=== PATIENT | male | born 1945 | race Caucasian/White ===

== ENCOUNTER → 2016-02-28 | Outpatient (CLI) | payer MEDICARE, BC ==
[2016-02-28 11:21] LABS: Blood Urea Nitrogen 17 mg/dL (9-20); Non-African American GFR(MDRD) >60 (>60 ml/min/1.73 sqM)
--- NOTE | 2016-02-28 13:49 | CT ---
EXAMINATION TYPE: CT ChestAbdPelvis w con DATE OF EXAM: 02/28/2016 12:37 PM COMPARISON: 11/20/2015 and 11/24/2014. HISTORY: 71-year-old male has no complaints at time of service. Follow up study for known esophageal CA. TECHNIQUE: Contiguous axial scanning of the chest, abdomen, and pelvis performed with IV Contrast, pa tient injected with 100 mL of Omnipaque 300. Delayed images through the kidneys were obtained. Russ l/sagittal reconstructions performed. CT DLP: 677.1 mGycm Automated exposure control for dose reduction was used. FINDINGS: CHEST: Heart is normal size without pericardial effusion. Aorta is normal caliber with a conventional chest branching anatomy. Scattered subcentimeter mediastinal lymph nodes are redemonstrated. One along the superior right para tracheal region axial image 14 now measures 8 mm versus 7 mm, previously. Small 5 mm lymph node to th e left of the thyroid gland is unchanged. A small 8 mm lymph node to the right of the thyroid gland i s 1 mm larger. A lymph node in the anterior mediastinum near the origin of the SVC measures 9 mm vers us 6 mm, previously. Numerous prominent but nonenlarged lymph nodes around the daniel measuring up to 9 mm are unchanged. Mild bilateral gynecomastia. There are postsurgical changes of esophagectomy and gastric pull-through. Band of atelectasis posterior right upper mid lung. Tiny scattered nodular densities measuring up to 3 mm in the left lung, images axial 28 and 29 and some subtle increased tree-in-bud opacities in the mid to lower lungs are noted. 8 mm pulmonary nodule inferior lingula image 39 is unchanged. No consolidation or pleural effusion. ABDOMEN: No focal liver lesion. No biliary ductal dilatation. Some dense layering sludge oral contrast within the gallbladder fundus. No abnormal gallbladder distention. Adrenal glands, right kidney with a 1.7 cm upper pole cyst, left kidney with a stable 2.8 cm lower po le cyst are unchanged. Smaller subcentimeter hypodensities in the left kidney are too small for accur ate CT characterization also likely cysts and are unchanged. There is a icbnp-ej-acvphedu size fatty umbilical hernia. There is heterogeneous enhancement of the superior half of the liver with adjacent inflammatory fat s tranding in the region of the splenic hilum. Hilar splenules are noted inferiorly and there is some h ypodensity also involving the pancreatic tail region, axial image 71 There is further progression splenomegaly now measuring 20.6 cm versus 16.5 cm, previously. This is m easured on sagittal series. No dilated small bowel or free air. Short stump of appendix is noted with moderate stool in the right hemicolon and mild left hemicolonic diverticulosis. No pericolonic inflammatory change. A mildly enlarged 1.3 cm retrocaval lymph node axial image 77 measures 1.2 cm, previously and is very small on 11/24/2014. Pelvis: Some chronic appearing fluid along the left-sided deep inguinal ring. Bladder is nondistended and erica w circumferential wall thickening. Status post prostatectomy with multiple surgical clips on both karan es of the lower pelvis. Additional surgical clips along the right iliac chain from prior dissection. Bones: No osseous destructive process. IMPRESSION: 1. A FEW LYMPH NODES HAVE MINIMALLY INCREASED IN SIZE BY 1 - 3 MM INCLUDING THE PREVIOUSLY DESCRIBED SUBCENTIMETER LYMPH NODES IN THE MEDIASTINUM (TO THE RIGHT OF THE THYROID GLAND, SUPERIOR RIGHT PARAT SALLY, ANTERIOR MEDIASTINUM NEAR THE ORIGIN OF THE SVC) AND A RETROCAVAL LYMPH NODE IN THE UPPER AB DOMEN WHICH CURRENTLY MEASURES 1.3 CM. CONTINUED CLOSE FOLLOW-UP IS RECOMMENDED. 2. PROGRESSIVE SPLENOMEGALY NOW AT 20.6 CM (VERSUS 16.5 CM, PREVIOUSLY). 3. THERE IS NEW HETEROGENEITY OF THE SUPERIOR HALF OF THE SPLEEN AND ADJACENT INFLAMMATORY FAT STRAND ING. FINDINGS COULD BE REACTIVE TO VASCULAR INSUFFICIENCY AND DEVELOPING SPLENIC INFARCT OR REACTIVE TO ACUTE PANCREATITIS OF THE PANCREATIC TAIL. CLINICALLY CORRELATE. 4. AN 8 MM LINGULAR PULMONARY NODULE IS UNCHANGED. 5. STATUS POST ESOPHAGECTOMY AND GASTRIC PULL-THROUGH. THERE ARE SOME INCREASED TREE-IN-BUD OPACITIES IN THE MID TO LOWER LUNGS THAT COULD REPRESENT MILD ASPIRATION OR BRONCHIOLITIS.
== END | disposition home or self-care (01) ==
LOC: RADCTMAIN 10:35
PROVIDERS: ATTEND Internal Medicine Hematology & Oncology
DX: C15.9 Malignant neoplasm of esophagus, unspecified (principal); R91.1 Solitary pulmonary nodule; R59.1 Generalized enlarged lymph nodes; R16.1 Splenomegaly, not elsewhere classified; Z90.49 Acquired absence of other specified parts of digestive tract
CPT/HCPCS: 82565; 84520; 71260; 74177; 36415; Q9967

== ENCOUNTER → 2016-07-04 | Outpatient (CLI) | payer MEDICARE, BC ==
[2016-07-04 07:26] LABS: Blood Urea Nitrogen 16 mg/dL (9-20); Non-African American GFR(MDRD) >60 (>60 ml/min/1.73 sqM)
--- NOTE | 2016-07-04 09:15 | CT ---
EXAMINATION TYPE: CT ChestAbdPelvis w con DATE OF EXAM: 07/04/2016 8:45 AM COMPARISON: Previous study dated 02/28/2016. HISTORY: Esophageal CA CT DLP: 1061.9 mGycm Automated exposure control for dose reduction was used. TECHNIQUE: Helical acquisition through the abdomen and pelvis was obtained without oral contrast but following the intravenous administration of 100 mL of Omnipaque 300. The data was formatted in the a xial, coronal and sagittal projections. FINDINGS: There has been an esophagectomy with gastric pull-through. There is a stable 9 mm nodule in the left lingula. Additional tiny nodules within the left lung are a gain identified measuring up to 4 mm. These are essentially unchanged from previous. There is atelect atic change at the lung bases. There is some calcification of the major fissure on the right. There is stable, subcentimeter adenopathy within the neck. The lesion measured previously at 7.9 mm t didi measures 7.5 mm. A right paratracheal lymph node measured previously at 7.9 mm today measures 8. 4 mm. Pretracheal lymph node on the left previously was measured at 9.3 mm. Today it measures 10.2 mm . There is no pleural or pericardial fluid. The heart is not enlarged. Within the abdomen, there is fatty infiltration of the liver. There is sludge in the gallbladder. The spleen is enlarged measuring 20 cm. The upper pole of the spleen remains heterogenous and unchanged from previous. Both adrenal glands appear normal. There is a stable 2.9 cm cyst in the lower pole of the left kidney. There are parapelvic cysts presen t bilaterally. There is a simple appearing 1.7 cm cyst in the upper pole of the right kidney. There a re several other smaller subcentimeter cysts bilaterally. The body and the tail of the pancreas are abnormal. There is an enlarging 2.3 cm cystic lesion involv ing the body of the pancreas. Definite inflammatory changes not seen. A retrocaval lymph node previously measured at 1.3 cm today measures 1.1 cm. No other definite retrop eritoneal, iliac or inguinal adenopathy is seen. The bladder is unremarkable. The prostate gland is been removed. There are scattered diverticula along the left side of the colon without radiographic evidence of div erticulitis. The appendix is not visualized with certainty. Small bowel loops appear normal. There is a periumbilical hernia containing fat only with a mouth measuring 1.1 cm. There is no free fluid and no free air. There is facet arthropathy, degenerative disc disease and hypertrophic spondylosis throughout the spi ne. No bony destructive lesion is seen. IMPRESSION: 1. STATUS POST ESOPHAGECTOMY AND GASTRIC PULL-THROUGH. 2. MULTIPLE, STABLE PULMONARY NODULES. 3. STABLE SPLENOMEGALY WITH HETEROGENOUS ENHANCEMENT OF THE UPPER POLE OF THE SPLEEN. 4. SLUDGE WITHIN THE GALLBLADDER. 5. STABLE RENAL CYSTS. 6. ABNORMAL APPEARING PANCREAS MAY BE THE SEQUELA OF PANCREATITIS. NO ACTIVE INFLAMMATION IS SEEN AT THIS TIME. 7. STABLE ADENOPATHY IN THE MEDIASTINUM AND RETROCAVAL REGIONS. 8. MINIMAL, UNCOMPLICATED DIVERTICULOSIS OF THE COLON. 9.. UMBILICAL HERNIA CONTAINING FAT ONLY WITH A MOUTH MEASURING 1.1 CM. 10. DEGENERATIVE CHANGES WITHIN THE SPINE.
== END | disposition home or self-care (01) ==
LOC: RADCTMAIN 06:57
PROVIDERS: ATTEND Internal Medicine Hematology & Oncology
DX: K57.30 Diverticulosis of large intestine without perforation or abscess without bleeding (principal); R91.8 Other nonspecific abnormal finding of lung field; R16.1 Splenomegaly, not elsewhere classified; K82.8 Other specified diseases of gallbladder; N28.1 Cyst of kidney, acquired; R59.9 Enlarged lymph nodes, unspecified; K42.9 Umbilical hernia without obstruction or gangrene; R93.5 Abnormal findings on diagnostic imaging of other abdominal regions, including retroperitoneum; C15.9 Malignant neoplasm of esophagus, unspecified; M47.9 Spondylosis, unspecified; Z90.49 Acquired absence of other specified parts of digestive tract
CPT/HCPCS: 82565; 84520; 71260; 74177; 36415; Q9967

== ENCOUNTER 2016-07-29 11:12 | Day surgery (SDC) | payer MEDICARE, BC ==
[2016-07-25 11:44] VITALS: BMI 23.2
[~2016-07-29 11:12] MED LIST: LACTATED RINGERS 1,000 ML IV SCH
[2016-07-29] MEDS ORDERED: LIDOCAINE 1% 20 ML VIAL (10MG/ML) FOR IV START INTRADERMA ONE (11:35)
[2016-07-29 11:44] VITALS: RESP 18; TEMP 96.9
[2016-07-29] MEDS ORDERED: PROPOFOL 10 MG/ML 20 ML VIAL IV ONE (11:44)
[2016-07-29] MEDS ORDERED: LIDOCAINE 1% INJ 10MG/ML (20 ML MDV) ONE (11:44)
--- NOTE | 2016-07-29 12:17 | P.PCN ---
Date of Procedure: 07/29/16 Preoperative Diagnosis: Postoperative Diagnosis: Procedure(s) Performed: Procedure: Esophagogastro duodenoscopy. Preoperative diagnosis: Anemia patient has history of adenocarcinoma of the esophagus. Postoperative diagnosis: 1. Prior distal esophageal resection with gastric pull- through. 2. Retained partially digested food in the stomach with no evidence of obstruction to the gastric outlet. 3. No evidence of recurrent cancer at the anastomotic site. 4. Mild gastritis, other pathology could have been overlooked because of the stomach contents. Preparation and sedation: Was provided by anesthesia. Brief clinical history: The patient is a 71-year-old male who was diagnosed with cancer of the esophagus back in July 2014 and underwent distal esophageal resection following radiation and chemotherapy. The patient is referred at this time because of anemia. There is no overt bleeding. His last colonoscopy was in March 2007 and that showed sigmoid diverticulosis. Procedure: With the patient on his left lateral decubitus position and after informed consent and adequate sedation, I passed the Olympus-GIF 160 video upper endoscope through the cricopharyngeus down the esophagus. The patient had evidence of prior distal resection and gastric pull-through. The anastomosis was at around 29 cm from the incisors. There was significant amount of partially digested food filling the stomach and regurgitating in the esophagus. There was no evidence of recurrent cancer at the anastomotic site or any evidence of esophagitis. The stomach had a background of some gastritis with minimal erythema and friability. Other pathology could have been obscured by the retained food. I was able to identify the pylorus and pass the endoscope through it into the duodenum. There was no mechanical obstruction to the gastric outlet the intestine looked normal. No evidence of bleeding. The patient tolerated the procedure well. Plan: The patient was reassured. Consideration can be given for repeat upper endoscopy after longer preparation. This could be done in the context of performing a colonoscopy part of the workup of his anemia. He will follow up with you as planned and I will keep you updated on his progress. Implants: Indications for Procedure: Operative Findings: Description of Procedure:
[2016-07-29 12:49] VITALS: BP 127/76; PULSE 80
== END 2016-07-29 12:57 | disposition home or self-care (01) ==
LOC: ORWHC2ENDO 11:12
DX: D64.9 Anemia, unspecified (principal); K21.9 Gastro-esophageal reflux disease without esophagitis; K29.70 Gastritis, unspecified, without bleeding; Z79.899 Other long term (current) drug therapy; Z85.01 Personal history of malignant neoplasm of esophagus; Z85.46 Personal history of malignant neoplasm of prostate
CPT/HCPCS: 43235; J2001; J2704

== ENCOUNTER 2016-09-30 09:31 | Day surgery (SDC) | payer MEDICARE, BC ==
[2016-09-26 09:59] VITALS: BMI 23.1
[2016-09-30 10:47] VITALS: TEMP 97
[2016-09-30] MEDS ORDERED: LACTATED RINGERS 1,000 ML IV ONE ×2 (10:47→12:43)
[2016-09-30] MEDS ORDERED: LIDOCAINE 1% 20 ML VIAL (10MG/ML) FOR IV START INTRADERMA ONE (10:54)
[2016-09-30] MEDS ORDERED: GLYCOPYRROLATE 0.2 MG/ML 2 ML VIAL ONE (12:17)
[2016-09-30] MEDS ORDERED: PROPOFOL 10 MG/ML 20 ML VIAL IV ONE (12:17)
[2016-09-30] MEDS ORDERED: KETAMINE 10 MG/ML 20 ML VIAL ONE (12:17)
[2016-09-30] MEDS ORDERED: LIDOCAINE 1% INJ 10MG/ML (20 ML MDV) ONE (12:17)
--- NOTE | 2016-09-30 13:00 | P.PCN ---
Date of Procedure: 09/30/16 Preoperative Diagnosis: Postoperative Diagnosis: Procedure(s) Performed: Procedure: Esophagogastroduodenoscopy and biopsy. Total colonoscopy.. Preoperative diagnosis: Anemia patient has history of adenocarcinoma of the esophagus. Postoperative diagnosis: 1. Prior distal esophageal resection with gastric pull- through. 2. Gastritis. 3. No evidence of recurrent cancer at the anastomotic site. 4. Sigmoid diverticulosis with no evidence of acute diverticulitis, strictures, polyps or cancer. Preparation: HalfLytely prep. Sedation: Was provided by anesthesia. Brief clinical history: The patient is a 71-year-old male who was diagnosed with cancer of the esophagus back in July 2014 and underwent distal esophageal resection following radiation and chemotherapy. The patient was referred last July because of anemia. An upper endoscopy revealed mild gastritis but there was large amount of retained secretions and partially digested food filling the stomach that could have obscured other pathology. His prior colonoscopy was in March 2007 and that showed sigmoid diverticulosis. The patient is referred at this time for repeat upper endoscopy and colonoscopy. Procedure: With the patient on his left lateral decubitus position and after informed consent and adequate sedation, I passed the Olympus-GIF 160 video upper endoscope through the cricopharyngeus down the esophagus. The patient had evidence of prior distal resection and gastric pull-through. The anastomosis was at around 29 cm from the incisors. The stomach was inspected carefully and there was no evidence of retained food or mechanical obstruction to the gastric outlet. The mucosa showed mottling, erythema and friability. Pyloric channel, duodenal bulb, post bulbar area and descending duodenum appeared within normal limits. I obtained biopsies from the duodenum as well as from the antrum and proximal stomach then the endoscope was withdrawn. There was no evidence of recurrent cancer at the anastomotic site or any evidence of esophagitis. There was no mechanical obstruction to the gastric or any evidence of bleeding. The patient tolerated the procedure well and I then proceeded with the colonoscopy. Perianal area did not show any fissures or fistulas. There were no masses felt on digital rectal examination. The Olympus CFQ 160L video colonoscope was then inserted in the rectum in the usual fashion and advanced to the cecum. There were several diverticular orifices seen scattered in the sigmoid with no evidence of acute diverticulitis or strictures. No polyps, tumors, angiodysplasias or other pathology noted or any evidence of bleeding. I retroflexed the endoscope in the rectum before the endoscope was withdrawn. The patient tolerated the procedure well. Plan: The patient was reassured. Will await pathology results and make further recommendations. He will follow up with you as planned. Implants: Indications for Procedure: Operative Findings: Description of Procedure:
[2016-09-30 13:13] VITALS: BP 130/86; PULSE 97; RESP 16
== END 2016-09-30 13:30 | disposition home or self-care (01) ==
LOC: ORWHC2ENDO 09:31
DX: K29.50 Unspecified chronic gastritis without bleeding (principal); D64.9 Anemia, unspecified; I10 Essential (primary) hypertension; K57.30 Diverticulosis of large intestine without perforation or abscess without bleeding; Z92.3 Personal history of irradiation; Z92.21 Personal history of antineoplastic chemotherapy; Z85.01 Personal history of malignant neoplasm of esophagus; Z85.46 Personal history of malignant neoplasm of prostate
CPT/HCPCS: 88305; 88342; 45378; 43239; J2001; J2704

== ENCOUNTER → 2016-11-03 | Outpatient (CLI) | payer MEDICARE, BC ==
[2016-11-03 10:12] LABS: Blood Urea Nitrogen 16 mg/dL (9-20); Non-African American GFR(MDRD) >60 (>60 ml/min/1.73 sqM)
--- NOTE | 2016-11-03 12:42 | CT ---
EXAMINATION TYPE: CT ChestAbdPelvis w con DATE OF EXAM: 11/03/2016 COMPARISON: Prior CT chest abdomen pelvis 07/04/2016 HISTORY: Esophageal cancer, observation for metastasis CT DLP: 1951 mGycm Automated exposure control for dose reduction was used. CONTRAST: CT scan of the chest, abdomen and pelvis is performed with Oral Contrast and with IV Contrast, patien t injected with 100 mL of Omnipaque 300. FINDINGS: LUNGS: Nodularity within the lungs is stable. MEDIASTINUM: There are coronary artery calcifications. No pleural or pericardial effusion. AORTA: No significant abnormality is seen. OTHER: Postop changes show a stable appearance. Small umbilical hernia contains fat. LIVER/GB: Liver shows low attenuation as on previous exam, focal sparing present adjacent to the gall bladder, gallbladder show some dependent high density suggestive of small stones or tumefactive sludg e as on previous PANCREAS: Similar findings, abnormal low attenuation again present within the pancreas. Some surround ing abnormal soft tissue extends to the level of the region around the splenic artery and towards the level of the hiatus, stable. SPLEEN: Again markedly enlarged with heterogeneous appearance. Splenic vein show some collateralizati on anteriorly. ADRENALS: No significant abnormality is seen. KIDNEYS: Multiple cysts present bilaterally as on prior exam REPRODUCTIVE ORGANS: Patient is likely post prostatectomy. Surgical clips are present in the pelvis. BOWEL: No evident bowel obstruction. FREE AIR: No Free Air visible. ASCITES: None seen. RETROPERITONEAL ADENOPATHY: No retroperitoneal adenopathy is seen. LYMPH NODES: No greater than 1 cm abdominal or pelvic lymph nodes are appreciated. URINARY BLADDER: Mild lateral wall thickening may be due to sequela of chronic bladder outlet obstru ction but is stable, correlate to exclude cystitis. PELVIC ADENOPATHY: None visualized. OSSEOUS STRUCTURES: Stable IMPRESSION: Postop changes. No significant interval change is evident. Splenomegaly. Hepatic steatosi s, cholelithiasis versus tumefactive sludge. Indeterminate pancreatic abnormality shows a stable appe arance. Additional findings above.
== END | disposition home or self-care (01) ==
LOC: RADCTMAIN 09:34
PROVIDERS: ATTEND Internal Medicine Hematology & Oncology
DX: C15.9 Malignant neoplasm of esophagus, unspecified (principal); R16.1 Splenomegaly, not elsewhere classified; Z98.890 Other specified postprocedural states
CPT/HCPCS: 82565; 84520; 71260; 74177; 36415; Q9967

== ENCOUNTER → 2017-05-06 | Outpatient (CLI) | payer MEDICARE ==
[2017-05-06 10:30] LABS: Blood Urea Nitrogen 15 mg/dL (9-20)
--- NOTE | 2017-05-06 15:25 | CT ---
EXAMINATION TYPE: CT ChestAbdPelvis w con DATE OF EXAM: 05/06/2017 INDICATION: Esophageal CA follow up COMPARISON: 11/03/2016 small lymph nodes between the left subclavian and left carotid artery. Some add itional small lymph nodes are in the pretracheal space. Enlarged lymphadenopathy is not identified ot herwise. Gastric pull-through is evident on the right of midline. CT DLP: 1052 mGycm CONTRAST: Performed with Oral Contrast and with IV Contrast, patient injected with 100 mL of Omnipaque 300. TECHNIQUE: Axial images at 5 mm thick sections. Reconstructed images in the coronal plane. Delayed images through the kidneys. FINDINGS: CT CHEST: Portion of the thyroid visualized is normal. No suspicious lung nodules or focal infiltrates are present. There is a small left pleural effusion w hich is new. There is a superior mediastinal lymph node with a transverse dimension 1.4 cm. Series 3 image 15. Thi s has enlarged from the comparison. The ascending aorta diameter at the level of the main pulmonary artery is 3.3 cm. The main pulmonary artery diameter at the bifurcation is 2.[address] ABDOMEN: Liver: Moderate fatty infiltration is present. No discrete mass is evident. Spleen: Splenomegaly is present. Spleen measures 21.6 cm in craniocaudal dimension. Normal less than 12.5 Pancreas: Pancreas is unchanged from prior study. Adrenal glands: The adrenal glands are normal. Gallbladder: Gallstones may be at the fundus of the gallbladder. This could be related to contrast ex cretion as well. Kidneys: No masses are evident. No hydronephrosis is present. There is a 2.7 cm cyst measuring 16 [place] units at the inferior pole left kidney. Delayed images were obtained through the kidneys, which remain unremarkable. Aorta: Vascular calcification is within the aorta. Inferior vena cava: Normal. CT PELVIS: Loops of bowel within the abdomen and pelvis are normal. There are loops of bowel which are incom pletely distended or lack oral contrast limiting their evaluation. Appendix: Normal as visualized. Urinary bladder: Normal. Genitourinary structures: There appears to be a prior prostatectomy. Osseous structures: No suspicious lytic or sclerotic lesions. IMPRESSIONS: 1. There is an enlarged lymph node which is increased in size from prior study in the superior medias tinum. 2. Fatty infiltration liver. 3. Splenomegaly. 4. Stable appearance of the pancreas.
== END | disposition home or self-care (01) ==
LOC: RADCTMAIN 09:50
PROVIDERS: ATTEND Internal Medicine Hematology & Oncology
DX: C15.9 Malignant neoplasm of esophagus, unspecified (principal); R16.1 Splenomegaly, not elsewhere classified; K76.0 Fatty (change of) liver, not elsewhere classified; R59.0 Localized enlarged lymph nodes
CPT/HCPCS: 82565; 84520; 71260; 74177; Q9967

== ENCOUNTER → 2017-07-08 | Outpatient (CLI) | payer MEDICARE ==
[2017-07-08 18:33] LABS: Blood Urea Nitrogen 18 mg/dL (9-20)
--- NOTE | 2017-07-09 03:42 | MR ---
EXAMINATION TYPE: MR liver wo/w con DATE OF EXAM: 07/08/2017 COMPARISON: NONE HISTORY: Thrombocytopenia. CONTRAST: Standard multiplanar, multisequence MRI departmental protocol utilizing 9 mL intravenous gadolinium c ontrast. FINDINGS: There is severe splenomegaly. Spleen measures 21 cm. Bile ducts are not dilated. There is n o focal liver defect. There are numerous bilateral renal cortical cysts. The largest is in the lower pole left kidney and measures 3.5 cm. There is no hydronephrosis. There is no sign of retroperitoneal adenopathy. There is mixed signal in the dependent gallbladder. This could relate to multiple gallst ones. There is no adrenal mass. There is some bulkiness of the body and tail of the pancreas. I see n o retroperitoneal adenopathy. There is previous surgery with gastric pull-through procedure. The bile ducts are not dilated. There is small left pleural effusion. There is normal contrast opacification of the splenic vein superior mesenteric vein and portal vein. IMPRESSION: Small left pleural effusion is probably smaller than old CT scan of 05/06/2017. Multiple renal cysts. Severe splenomegaly. No dilated ducts. There is significant bulkiness of the body and tail of the gaines creas that is unchanged compared to recent CT scan and is of uncertain significance. This appears inc reased slightly compared to the older CT scan of 11/03/2016 and could relate to infiltrative process.
== END | disposition home or self-care (01) ==
LOC: RADMRIMAIN 17:52
PROVIDERS: ATTEND Physician Assistant
DX: N28.1 Cyst of kidney, acquired (principal); R16.1 Splenomegaly, not elsewhere classified; K86.89 Other specified diseases of pancreas
CPT/HCPCS: 82565; 84520; 74183; 36415; A9581

== ENCOUNTER → 2017-10-27 | Outpatient (CLI) | payer MEDICARE ==
--- NOTE | 2017-10-27 13:28 | CT ---
EXAMINATION TYPE: CT ChestAbdPelvis w con DATE OF EXAM: 10/27/2017 COMPARISON: 05/06/2017, MRI 07/08/2017 HISTORY: esophageal cancer CT DLP: 930.9 mGycm Automated exposure control for dose reduction was used. CONTRAST: CT scan of the chest, abdomen and pelvis is performed with Oral Contrast and with IV Contrast, patien t injected with 100mL mL of Isovue 300. FINDINGS: CT CHEST: Portion of the thyroid visualized is normal. . Stable 3 mm nodule in the left upper lobe. There is a calcified nodule in the right lung. Subsegmental areas of consolidation are most typical atelectasis. No pneumothorax. There are 2 stable 3 mm nodules in the right lower lobe axial image 33. Additional tree-in-bud pattern tiny 2 to 3 mm nodules in the right upper lobe are stable from the prior exam. There is a superior mediastinal lymph node with a transverse dimension 1.8 cm in short axis. This is along the right paratracheal region extending into the right supraclavicular region. Extends a cranio caudal dimension of 4.6 cm. This has enlarged from the comparison. The ascending aorta diameter at th e level of the main pulmonary artery is 3.3 cm. The main pulmonary artery diameter at the bifurcation is 2.4 cm. LIVER/GB: Liver reduced in attenuation. Related for fatty infiltration. Hyperdensity appears to be wi thin dependent portion of the gallbladder likely representing numerous tiny gallstones.. PANCREAS: There is a markedly abnormal appearance of the pancreas which measures 4.2 x 9.7 cm extends to the splenic hilum. There is encasement of the splenic vasculature. This is noticeably increased i n size from the CT scan 2017. Pancreatic mass or matted adenopathy in the differential diagnosis. SPLEEN: Splenomegaly is present. Spleen measures 21.6 cm in craniocaudal dimension. ADRENALS: No significant abnormality is seen. KIDNEYS: No masses are evident. No hydronephrosis is present. There is a 2.7 cm cyst measuring 16 [place] units at the inferior pole left kidney. Delayed images were obtained through the kidneys, whi ch remain unremarkable. BOWEL: Previous surgery involving the esophagus noted. LYMPH NODES: No greater than 1 cm abdominal or pelvic lymph nodes are appreciated. OSSEOUS STRUCTURES: Hypertrophic and degenerative changes of the spine noted. Arthropathy of the hips . Suggestion of previous surgery involving the right shoulder. OTHER: Aorta of normal caliber. Bladder wall mild thickening but is nondistended. Surgical clips in t he lower pelvis noted. IMPRESSION: 1. Postsurgical changes with stable sub-5 mm bilateral pulmonary nodules. 2. There is interval increase noticeable in size of a pathologic lymph node in the right paratracheal region which now measures 1.8 cm in short axis but extends a craniocaudal dimension of 4.6 cm into t he right supraclavicular region. This is a suspicious appearing lymph node. 3. Continued marked abnormal appearance in the region of the pancreatic body and tail which measures 4.2 x 9.7 x 7.7 cm. There is abnormal attenuation, thickening and encasement of the splenic vasculatu re. This could be suspicious for neoplastic process including pancreatic mass or matted adenopathy. T his is noticeably increased from the exam of 2017 and not present on the CT scan of 2015. This has a very suspicious appearance. 3. Splenomegaly.
== END | disposition home or self-care (01) ==
LOC: RADCTMAIN 10:56
PROVIDERS: ATTEND Internal Medicine Hematology & Oncology
DX: R91.8 Other nonspecific abnormal finding of lung field (principal); R93.5 Abnormal findings on diagnostic imaging of other abdominal regions, including retroperitoneum; R16.1 Splenomegaly, not elsewhere classified; C15.9 Malignant neoplasm of esophagus, unspecified; Z98.890 Other specified postprocedural states
CPT/HCPCS: 82565; 84520; 71260; 74177; 36415; Q9967

== ENCOUNTER 2017-11-09 08:02 | Day surgery (SDC) | payer MEDICARE ==
[2017-11-09 08:47] VITALS: RESP 18; TEMP 98
[2017-11-09 09:12] LABS: Glucose,Whole Blood 129 mg/dL (75-99)
[2017-11-09 09:30] VITALS: PULSE 100
--- NOTE | 2017-11-09 10:10 | US ---
ULTRASOUND GUIDED FNA AND CORE BIOPSY RIGHT NECK MASS: CLINICAL HISTORY: Right neck mass FINDINGS: The procedure was explained to the patient. The risks, complications, benefits and alternatives were discussed and any questions were answered. Informed consent was obtained. Patient was placed supin e on the ultrasound table and prepped and draped in the usual sterile fashion. Utilizing a 25 gauge needle, 4 passes were made into the rested right neck mass and 2 18-gauge core samples were obtained. Patient was stable throughout the procedure. Pathology is pending. All elements of maximal barrier and sterile technique were utilized. IMPRESSION: 1. Successful ultrasound guided FNA and core biopsy of a right neck mass.
[2017-11-09 10:17] VITALS: BP 108/61
== END 2017-11-09 10:05 | disposition home or self-care (01) ==
LOC: RADPROMAIN 08:02
PROVIDERS: ATTEND Internal Medicine Hematology & Oncology
DX: C77.0 Secondary and unspecified malignant neoplasm of lymph nodes of head, face and neck (principal); C15.9 Malignant neoplasm of esophagus, unspecified
CPT/HCPCS: 10022; 21550; 76942; 88173; 88305; 88341; 88342

== ENCOUNTER → 2017-11-14 | Outpatient (CLI) | payer MEDICARE ==
--- NOTE | 2017-11-17 08:24 | PE ---
EXAMINATION TYPE: PET CT fusion skull to thigh DATE OF EXAM: 11/14/2017 COMPARISON: Prior PET/CT August 05, 2014. Prior CT chest abdomen and pelvis October 27, 2017 and older CTs. HISTORY: Esophageal cancer progress study. Had surgery and radiation treatment in 2014. Recurrence di agnosed on supraclavicular biopsy November 09, 2017. TECHNIQUE: Following the intravenous administration of 13.182 mCi of F-18 FDG, whole body images are performed from the skull base to the midthigh. Images are reviewed on the computer in the coronal, axial, and sagittal planes. Reconstructed rotating images are created on independent workstation and reviewed on the computer. A noncontrast CT is performed in conjunction with the PET scan. SCAN: Subsequent Scan FINDINGS: SKULL BASE AND NECK: Corresponding to most recent CT and ultrasound guided sampling results there is enlarged right supraclavicular hypermetabolic mass axial image 68 measuring roughly 2.3 x 1.6 cm, ma x SUV is 6.84 at level of right thyroid gland. Just inferior to this there is larger hypermetabolic m ass anterior superior mediastinum measuring 3.1 x 3.0 cm axial image 76 with max SUV of 6.18. This is causing mass effect on the right brachiocephalic artery which is deviated anteriorly. There is suspicious third focus of slight hypermetabolic uptake axial image 61 at level of left false vocal cords anterolateral aspect that can be followed. Max SUV is measured 2.5. CHEST, MEDIASTINUM, AND HILAR REGION: Mild hypermetabolic uptake is present in subcentimeter bilatera l hilar lymph nodes and mediastinal lymph nodes, for reference most suspicious is 9 x 8 mm lymph node in the AP window axial image 99 with max SUV of 3.02. These lymph nodes are fairly stable in size an d appearance from multiple prior CTs and favored benign. There is persistent small left pleural effusion slightly larger versus most recent CT. Surgical pantoja es from esophagectomy and gastric pull-through procedure are redemonstrated. ABDOMEN AND PELVIS: No new areas of suspicious hypermetabolic uptake are present. OSSEOUS STRUCTURES: No new areas of suspicious hypermetabolic uptake are seen. OTHER CT: There is 1 cm mucous retention cyst or polyp in the posterior left maxillary sinus on curre nt study axial image 28. There is mild underlying emphysematous change. There is patchy linear scarring and/or atelectasis in the right lung base. Surgical sutures are suspected laterally in the right lower lung. Coronary artery calcification is seen which is noted marker for coronary artery disease. Bilateral gy necomastia is present. Liver is heterogeneously hypodense consistent with fatty infiltration. Marked splenomegaly is redemon strated. Dependent small gallstones in gallbladder again seen. Prostate gland is surgically absent. Surgical clips and pelvis are redemonstrated. There are diverticula in the sigmoid colon. There is multilevel spurring in the thoracolumbar spine. There is facet arthropathy lower lumbar leve ls. There are a few simple appearing cysts scattered throughout both kidneys redemonstrated with larger c ysts lower pole level left kidney. IMPRESSION: Neoplastic recurrence right lower neck and upper thorax is confirmed. No additional metas tatic foci clearly identified.
== END | disposition home or self-care (01) ==
LOC: RADPETMAIN 09:54
PROVIDERS: ATTEND Internal Medicine Hematology & Oncology
DX: C15.5 Malignant neoplasm of lower third of esophagus (principal); C76.0 Malignant neoplasm of head, face and neck; C76.1 Malignant neoplasm of thorax
CPT/HCPCS: 78815; A9552

== ENCOUNTER 2017-11-26 08:07 | Day surgery (SDC) | payer MEDICARE ==
[2017-11-20 17:14] VITALS: BMI 22.7
[~2017-11-26 08:07] MED LIST changes: -LACTATED RINGERS 1,000 ML IV SCH; +Pre Op ABX Message 1 EACH MISC MISCELLANE ONE
[2017-11-26] MEDS ORDERED: LACTATED RINGERS 1,000 ML IV ONE (09:32)
[2017-11-26] MEDS: HEPARIN SODIUM,PORCINE 5,000 UNIT/ML 1 ML VIAL SQ ONE ×2 (09:32→10:49)
[2017-11-26] MEDS ORDERED: ONDANSETRON 4 MG/2 ML VIAL IVP ONE ×2 (09:42→11:58)
[2017-11-26 09:43] LABS: Glucose,Whole Blood 121 mg/dL (75-99)
[2017-11-26] MEDS ORDERED: GLYCOPYRROLATE 0.2 MG/ML 2 ML VIAL ONE (10:21)
[2017-11-26] MEDS ORDERED: MIDAZOLAM 2 MG/2 ML VIAL ONE (10:21)
[2017-11-26] MEDS ORDERED: PROPOFOL 10 MG/ML 20 ML VIAL IV ONE (10:21)
[2017-11-26] MEDS ORDERED: fentaNYL (PF) 50 MCG/ML 2 ML AMP ONE (10:21)
[2017-11-26] MEDS ORDERED: KETAMINE 10 MG/ML 20 ML VIAL ONE (10:21)
--- NOTE | 2017-11-26 10:27 | P.GSHP ---
History of Present Illness H&P Date: 11/26/17 Chief Complaint: Esophageal cancer This is a 72-year-old male presents today for Port-A-Cath placement. Patient has been diagnosed with esophageal cancer. He'll require Port-A-Cath for infusion therapy. Past Medical History Past Medical History: Cancer, GERD/Reflux, Prostate Disorder Additional Past Medical History / Comment(s): RECURRENT STAGE 4 ESOPHAGEAL CANCER DX 11/19/17. VERY HOARSE LAST 3 MONTHS. "rapid heart rate", hx esophageal cancer 2014, radiation and chemo, hx prostate cancer prior to esophageal ca, had radiation, hiatal hernia, hx anemia, History of Any Multi-Drug Resistant Organisms: None Reported Past Surgical History: Appendectomy, Hernia Repair, Orthopedic Surgery, Prostate Surgery Additional Past Surgical History / Comment(s): surgery for esophageal cancer, rt shoulder surgery, Past Anesthesia/Blood Transfusion Reactions: Previous Problems w/ Anesthesia, Motion Sickness, Postoperative Nausea & Vomiting (PONV) Additional Past Anesthesia/Blood Transfusion Reaction / Comment(s): hard time waking up Smoking Status: Never smoker - Past Family History Mother Family Medical History: Cancer Brother(s) Family Medical History: Cancer Additional Family Medical History / Comment(s): prostate Medications and Allergies Home Medications Medication Instructions Recorded Confirmed Type Imipramine HCl [Tofranil] 50 mg PO BID 07/21/14 11/20/17 History Lansoprazole 30 mg PO 2000 07/25/16 11/20/17 History Metoprolol Tartrate 25 mg PO BID 07/25/16 11/20/17 History metFORMIN HCL [Glucophage Xr] 500 mg PO DAILY 11/05/17 11/20/17 History Allergies Allergy/AdvReac Type Severity Reaction Status Date / Time No Known Allergies Allergy Verified 11/20/17 17:09 Surgical - Exam Vital Signs Temp Pulse Resp BP Pulse Ox 98.0 F 90 18 131/79 98 11/26/17 09:36 11/26/17 09:36 11/26/17 09:36 11/26/17 09:36 11/26/17 09:36 - General well developed, no distress - Eyes PERRL - ENT normal pinna - Neck no masses - Respiratory normal expansion - Cardiovascular Rhythm: regular - Abdomen Abdomen: soft, non tender Results - Labs Abnormal Lab Results - Last 24 Hours (Table) 11/26/17 Range/Units 09:40 POC Glucose (mg/dL) 121 H (75-99) mg/dL Assessment and Plan Assessment: History of esophageal cancer.. We'll perform Port-A-Cath placement.
[2017-11-26] MEDS ORDERED: CEFAZOLIN IV ONE ×2 (10:32)
[2017-11-26] MEDS ORDERED: SODIUM CHLORIDE 0.9% IV ONE ×2 (10:32)
[2017-11-26] MEDS ORDERED: BUPIVACAIN-EPI 0.25%-1:200,000 30 ML VIAL SQ ONE ×2 (10:42)
[2017-11-26] MEDS ORDERED: IOPAMIDOL-370 50ML BTL MISCELLANE ONE ×2 (10:42)
--- NOTE | 2017-11-26 10:59 | P.OP ---
Date of Procedure: 11/26/17 Preoperative Diagnosis: Esophageal cancer Postoperative Diagnosis: Esophageal cancer Procedure(s) Performed: Right subclavian Port-A-Cath Anesthesia: MAC Surgeon: Vinicio Couch Estimated Blood Loss (ml): 5 Pathology: none sent Condition: stable Disposition: PACU Description of Procedure: PROCEDURE: The patient was placed on the operating table in the supine position. She received MAC anesthetic. The [right] chest was prepped and draped in the usual sterile fashion. The skin underneath the right clavicle was anesthetized with 1% Xylocaine and using Seldinger technique, the right subclavian vein was cannulized. The wire was placed through the needle and positioned under fluoroscopy. Next, the needle was removed and the port site was anesthetized with 1% Xylocaine. Skin was incised with #15 blade and port pocket was made using blunt and sharp dissection. Following this the catheter was attached to the sport and the port was flushed. The port was positioned into the pocket site and was secured with 3-0 Vicryl suture. The catheter was then brought out through the wire site and then the dilator sheath was placed over the wire and the dilator and the wire were removed. The catheter was placed through the sheath and the sheath was removed. The port was flushed with hep-lock solution. Skin was closed with interrupted 3-0 Vicryl sutures. Steri-Strips were applied. The patient tolerated the procedure well. The patient was sent to recovery room for chest x-ray after the procedure.
--- NOTE | 2017-11-26 11:11 | FL ---
EXAMINATION TYPE: FL guided central line placemt HISTORY: Fluoroscopy time Impression: 1. Fluoroscopy support provided to the referring physician. 2 seconds of fluoroscopy provided.
[2017-11-26 11:21] VITALS: RESP 16; TEMP 97.2
[2017-11-26 11:30] LABS: Glucose,Whole Blood 109 mg/dL (75-99)
--- NOTE | 2017-11-26 11:39 | XR ---
EXAMINATION TYPE: XR chest 1V portable DATE OF EXAM: 11/26/2017 COMPARISON: NONE HISTORY: Port-A-Cath insertion TECHNIQUE: Single frontal view of the chest is obtained. FINDINGS: There is right perihilar soft tissue prominence with bilateral consolidation and tiny effu brain. Right-sided Port-A-Cath seen with the tip overlying the SVC and no sizable pneumothorax. IMPRESSION: 1. Right hilar soft tissue prominence with bilateral consolidation and small effusion greater on the right. 2. No evidence of pneumothorax.
[2017-11-26 12:11] VITALS: BP 124/81; PULSE 94
== END 2017-11-26 13:19 | disposition home or self-care (01) ==
LOC: OR 08:07
PROVIDERS: ATTEND Surgery
DX: C15.9 Malignant neoplasm of esophagus, unspecified (principal); K21.9 Gastro-esophageal reflux disease without esophagitis; E11.9 Type 2 diabetes mellitus without complications; Z79.84 Long term (current) use of oral hypoglycemic drugs; Z92.3 Personal history of irradiation; Z92.21 Personal history of antineoplastic chemotherapy; K44.9 Diaphragmatic hernia without obstruction or gangrene; Z85.46 Personal history of malignant neoplasm of prostate; Z79.899 Other long term (current) drug therapy
CPT/HCPCS: 77001; 71045; 36571; C1788; J2250; J1644; J2405; J0690; J3010; J2704; Q9967

== ENCOUNTER → 2018-01-26 | Outpatient (CLI) | payer MEDICARE ==
[~2018-01-26] MED LIST changes: -Pre Op ABX Message 1 EACH MISC MISCELLANE ONE; +SODIUM CHLORIDE 0.9% 500 ML 500 ML in EMPTY BAG 1 BAG IV PRN
[2018-01-26 13:43] VITALS: RESP 16
[2018-01-26 15:05] VITALS: BP 116/73; PULSE 103; TEMP 98
== END | disposition home or self-care (01) ==
LOC: PROCWHC3 12:45
PROVIDERS: ATTEND Internal Medicine Hematology & Oncology
DX: D69.59 Other secondary thrombocytopenia (principal)
CPT/HCPCS: 36430; P9035; J1642

== ENCOUNTER → 2018-02-06 | Outpatient (CLI) | payer MEDICARE ==
--- NOTE | 2018-02-07 17:26 | PE ---
EXAMINATION TYPE: PET CT fusion skull to thigh DATE OF EXAM: 02/06/2018 COMPARISON: Prior PET/CT November 14, 2017. CT chest abdomen and pelvis October 27, 2017 and older CTs. HISTORY: History of prostate cancer 2011, history of esophageal cancer diagnosed 2015 completed chemo therapy January 18, 2018. TECHNIQUE: Following the intravenous administration of 11.34 mCi of F-18 FDG, whole body images are performed from the skull base to the midthigh. Images are reviewed on the computer in the coronal, a xial, and sagittal planes. Reconstructed rotating images are created on independent workstation and reviewed on the computer. A noncontrast CT is performed in conjunction with the PET scan. SCAN: Subsequent Scan FINDINGS: SKULL BASE AND NECK: Marked interval improvement in hypermetabolic right supraclavicular mass at lev el of thyroid gland axial image 65, max SUV at this level is 2.7 on current study. Mass measures roug hly 1.7 x 0.7 cm axial image 69. Just inferior to this right anterior superior mediastinal mass measures b 1.8 x 1.4 cm current study image 77 diminished in size from prior study adjacent to trachea, it has max SUV of 2.24 improved fro m prior. Mild uptake at level of left vocal cord axial image 57 is stable without suspicious mass. No new areas of abnormal hypermetabolic uptake are present. CHEST, MEDIASTINUM, AND HILAR REGION: Persistent prominent but subcentimeter thoracic lymph nodes are redemonstrated. A roughly 6 mm lymph node adjacent SVC on axial image 88 has max SUV of 4.24 on curr ent study. There are additional suspicious hypermetabolic subcentimeter bilateral hilar and pericarin al lymph nodes near axial image 99, max SUV is 4.07 left hilar region. There is mildly hypermetabolic prominent left intramammary lymph node axial image 97 noted, max SUV is 2.32. These lymph nodes are not significantly changed in size from prior. There is small to moderate-sized left pleural effusion increased in size from prior. Surgical changes from esophagectomy and gastric pull-through procedure are redemonstrated. ABDOMEN AND PELVIS: Some diffuse bowel uptake is present. Normal bladder excretion is seen. No new ar eas of suspicious hypermetabolic uptake are present. OSSEOUS STRUCTURES: No new areas of suspicious hypermetabolic uptake are seen. OTHER CT: There is subcentimeter mucous retention cyst or polyp in the posterior left maxillary sinus on current study axial image 21 redemonstrated. There is mild to moderate underlying emphysematous change redemonstrated. There is patchy linear scar ring and/or atelectasis in the right lung base. Surgical sutures are suspected laterally in the right lower lung. Coronary artery calcification is redemonstrated which is noted marker for coronary arter y disease. Bilateral gynecomastia is again seen. There is new right subclavian Mediport catheter term inating in SVC. Liver is heterogeneously hypodense consistent with fatty infiltration. Marked splenomegaly is redemon strated. Dependent small gallstones in gallbladder are again seen. Marked hypodense soft tissue fulln ess at level of mid to distal body of pancreas and tail extending to the splenic hilum without hyperm etabolic uptake is redemonstrated, neoplasm at this level cannot be excluded. Prostate gland is surgically absent. Surgical clips in the pelvis are redemonstrated. There are diver ticula in the sigmoid colon. There is multilevel spurring in the thoracolumbar spine. There is facet arthropathy lower lumbar leve ls. There are a few simple appearing cysts scattered throughout both kidneys redemonstrated with larger c ysts lower pole level left kidney. IMPRESSION: Positive treatment response to neck adenopathy. Stable subcentimeter mildly hypermetaboli c thoracic lymph nodes. Stable suspicious mid to distal pancreatic mass seen better on recent contras t-enhanced CT extending into splenic hilum. No new areas of hypermetabolic uptake are clearly identif ied.
== END | disposition home or self-care (01) ==
LOC: RADPETMAIN 09:58
PROVIDERS: ATTEND Internal Medicine Hematology & Oncology
DX: C15.8 Malignant neoplasm of overlapping sites of esophagus (principal); R59.0 Localized enlarged lymph nodes
CPT/HCPCS: 78815; A9552

== ENCOUNTER → 2018-03-12 | Outpatient (CLI) | payer MEDICARE ==
--- NOTE | 2018-03-12 13:41 | CT ---
EXAMINATION TYPE: CT abdomen pelvis wo con DATE OF EXAM: 03/12/2018 COMPARISON: 10/27/2017 HISTORY: Right flank pain. History of prostate and esophageal CA. CT DLP: 392.6 mGycm Examination of the solid and hollow viscera is limited given the lack of contrast. FINDINGS: LUNG BASES: No evidence for nodule. No evidence for infiltrate. Evidence of esophagectomy with gastri c pull-through procedure. LIVER/GB: There is evidence of hepatic steatosis. Gallbladder sludge is identified. No space-occupyin g hepatic lesion. PANCREAS: Masslike area involving the pancreatic body and tail persists with extension into the hilum . This may reflect pancreatic neoplasm versus a conglomerate adenopathy. Lack of contrast limits eval uation. SPLEEN: There is evidence of splenomegaly measuring 22.2 cm craniocaudal dimension unchanged from jeovanny or study. ADRENALS: No adrenal nodules identified. No evidence for thickening. KIDNEYS: Hypoattenuating renal lesions are felt to reflect cysts. 3 mm calculus at the right UVJ resu lting in mild right-sided hydronephrosis. BOWEL: Appendix has a normal appearance. No evidence of bowel obstruction. No inflammatory process. Lymph nodes: No evidence for adenopathy greater than 1 cm. Abdominal aorta: Atheromatous changes seen. No evidence for aneurysm. Genital organs: Prostatectomy changes noted. Other: No significant abnormality. IMPRESSION: 1. Masslike area involving the pancreas as noted above extending to the splenic hilum is unchanged. 2. Splenomegaly. 3. Esophagectomy with gastric pull-through procedure. 4. 3 mm calculus at the right UVJ resulting in mild right-sided hydronephrosis
== END | disposition home or self-care (01) ==
LOC: RADCTMAIN 11:44
PROVIDERS: ATTEND Family Medicine
DX: N13.2 Hydronephrosis with renal and ureteral calculous obstruction (principal); R16.1 Splenomegaly, not elsewhere classified; K86.9 Disease of pancreas, unspecified; Z98.890 Other specified postprocedural states
CPT/HCPCS: 74176

== ENCOUNTER → 2018-08-03 | Outpatient (CLI) | payer MEDICARE ==
[2018-08-03 10:00] LABS: African American GFR (CKD) >90 (>60 ml/min/1.73 sqM); Blood Urea Nitrogen 13 mg/dL (9-20)
--- NOTE | 2018-08-03 11:42 | CT ---
EXAMINATION TYPE: CT ChestAbdPelvis w con DATE OF EXAM: 08/03/2018 COMPARISON: CT chest abdomen and pelvis October 27, 2017 and older CTs. PET/CT February 06, 2018 and older studies. HISTORY: Esophageal cancer progress study completed chemotherapy July 27, 2018 Automated Exposure Control for Dose Reduction was Utilized. CONTRAST: CT scan of the thorax, abdomen and pelvis is performed with IV Contrast, patient injected with 100 mL of Isovue 300. FINDINGS: LUNGS: There is recurrent small left pleural effusion new from most recent CT. There is right hilar s carring and infrahilar tiny nodularity not significantly changed from most recent PET/CT with additio nal scarring and/or atelectasis in the right lower lung. No new nodules or masses are clearly seen. MEDIASTINUM: There is persistent enlarged right anterior superior mediastinal lymph node adjacent to proximal trachea measuring 2.8 x 1.7 cm current study image [address] October 27, 2017, no t significantly changed in size from most recent PET/CT. No cardiomegaly or pericardial effusion is seen. Surgical changes from esophagectomy and gastric pull-up procedure are redemonstrated. Coronar y artery calcification is redemonstrated which is noted marked underlying coronary artery disease. OTHER: Stable right subclavian Mediport catheter. LIVER/GB: High dense material consistent with small stones and/or gallbladder sludge dependently in g allbladder is redemonstrated. PANCREAS: Heterogeneous hypodense tissue at level of the mid to distal body and tail of pancreas cammy uring approximately 8.0 x 4.1 cm on axial image 72 is not significantly changed from most recent CTs and PET/CT with some encasement of vessels at this level. There is however suspicious hyperdense roun d component measuring 2.1 cm coronal image 39 and axial image 76 which is better seen on current stud ies. SPLEEN: Marked splenomegaly is redemonstrated. ADRENALS: No significant abnormality is seen. KIDNEYS: Some simple appearing scattered cysts throughout the left kidney are redemonstrated. Interva l passage of small distal 3 mm right ureter calculus. BOWEL: Oral contrast does not reach colonic level. There is no suspicious small or large bowel dilata tion seen. GENITAL ORGANS: Prostate gland is surgically absent with surgical clips bilateral pelvic region redem onstrated. LYMPH NODES: No greater than 1cm abdominal or pelvic lymph nodes are appreciated. OSSEOUS STRUCTURES: Moderate multilevel spurring in the thoracolumbar spine is present. Transitional- type vertebra at lumbosacral junction is again seen. Surgical changes right humeral head level are re demonstrated. OTHER: No significant additional abnormality is seen. IMPRESSION: Suspicious Right anterior superior lymph node not significantly changed in size from most recent PET/CT. Suspicious mid to distal pancreatic mass not significantly changed in size from most recent CT and PET/CT. Hyperdense round component within this tissue is of uncertain clinical signific ance but is noted. No new mass or adenopathy clearly identified. Recurrent small left pleural effusio n however is noted.
== END | disposition home or self-care (01) ==
LOC: RADPROMAIN 08:20
PROVIDERS: ATTEND Internal Medicine Hematology & Oncology
DX: Z03.89 Encounter for observation for other suspected diseases and conditions ruled out (principal); C15.9 Malignant neoplasm of esophagus, unspecified; J90 Pleural effusion, not elsewhere classified
CPT/HCPCS: 82565; 84520; 71260; 74177; 36415; Q9967 ×2

== ENCOUNTER → 2018-08-23 | Outpatient (CLI) | payer MEDICARE ==
--- NOTE | 2018-08-23 21:04 | MR ---
EXAMINATION TYPE: MR MRCP DATE OF EXAM: 08/23/2018 COMPARISON: CT 08/03/2018 and 03/12/2018 HISTORY: 73-year-old male pancreatic mass TECHNIQUE: Multiplanar, multisequence images of the abdomen are obtained without contrast. Highly T2 weighted images of the pancreatic biliary system were obtained for MRCP. 3-D reconstructions generate d on a dedicated independent workstation. FINDINGS: Heart normal size. Moderate left pleural effusion persists. There are postsurgical changes of esophagectomy and gastric pull-through demonstrated. Liver mildly enlarged measuring 19.2 cm. No loss of signal on out of phase T1 weighted sequences sugg est fatty infiltration. MRCP images show no biliary ductal dilatation. Main pancreatic duct is normal caliber. Gallbladder contains layering sludge. The spleen is severely enlarged measuring 23.1 cm. Corresponding to the questioned round area of incr eased density located within the abnormal soft tissue infiltrating the pancreatic body and tail is a 2.1 cm splenule. The soft tissue infiltrating the pancreatic body and tail measures up to 6.9 x 5.4 x 4.3 cm encasing the splenic artery. It seems to cut off the flow void of the splenic vein. There are numerous cysts within the kidneys, left greater than right measuring up to 4.0 cm on the le ft and 2.2 cm on the right. The adrenal glands are within normal limits. Tiny fatty periumbilical hernia. There is trace perihepatic and perisplenic ascites. IMPRESSION: 1. 6.9 x 5.4 x 4.3 cm soft tissue infiltrating the pancreatic body and tail extending to the splenic hilum and engulfing a 2.1 cm hilar splenule. The infiltrating tissue could correspond to metastatic d isease, matted lymphadenopathy, or a pancreatic neoplasm. It encases the splenic artery and seems to cut off the splenic vein. The hilar splenule corresponds to the questioned area of rounded density on the recent CT of 08/03/2018. 2. Severe splenomegaly at 23.1 cm. 3. Gallbladder sludge. No biliary ductal dilatation. 4. Continued moderate left pleural effusion. Trace perihepatic and perisplenic ascites.
== END | disposition home or self-care (01) ==
LOC: RADMRIMAIN 07:22
PROVIDERS: ATTEND Internal Medicine Hematology & Oncology
DX: R59.0 Localized enlarged lymph nodes (principal); R16.1 Splenomegaly, not elsewhere classified; J90 Pleural effusion, not elsewhere classified
CPT/HCPCS: 74181

== ENCOUNTER 2018-09-07 06:47 | Day surgery (SDC) | payer MEDICARE ==
[2018-09-03 11:40] VITALS: BMI 21.2
[~2018-09-07 06:47] MED LIST changes: +LACTATED RINGERS 1,000 ML IV SCH; +LIDOCAINE 1% 20 ML VIAL (10MG/ML) FOR IV START INTRADERMA PRN; -SODIUM CHLORIDE 0.9% 500 ML 500 ML in EMPTY BAG 1 BAG IV PRN
[2018-09-07 07:14] VITALS: TEMP 97.5
[2018-09-07] MEDS ORDERED: ONDANSETRON 4 MG/2 ML VIAL IVP ONE (07:27)
[2018-09-07 07:28] LABS: Glucose,Whole Blood 125 mg/dL (75-99)
[2018-09-07] MEDS ORDERED: LIDOCAINE 1% INJ 10MG/ML (20 ML MDV) ONE (07:36)
[2018-09-07] MEDS ORDERED: PROPOFOL 10 MG/ML 20 ML VIAL IV ONE (07:36)
[2018-09-07 08:04] VITALS: RESP 16
--- NOTE | 2018-09-07 08:07 | P.PCN ---
Date of Procedure: 09/07/18 Description of Procedure: BRIEF HISTORY: 73-year-old male with a known history of esophageal cancer status post esophagectomy and chemotherapy and radiation therapy in 2014. Patient was diagnosed in 10/2017 with recurrent stage IV esophageal cancer and is currently undergoing chemotherapy. The patient does report symptoms of esophageal dysphagia. PROCEDURE PERFORMED: Esophagogastroduodenoscopy. PREOPERATIVE DIAGNOSIS: Esophageal dysphagia, stage IV esophageal cancer. ESTIMATED BLOOD LOSS: Minimal. IV sedation per anesthesia. PROCEDURE: After informed consent was obtained, the patient was brought into the endoscopy unit. IV sedation was administered by Anesthesia under continuous monitoring. Initially the Olympus GIF-190 video endoscope was inserted into the mouth. Scope was advanced into the esophagus where ulceration was noted at the anastomotic site from prior esophagectomy, approximately 30 cm from the incisors. This area was significant for friability, erythema and minimal oozing of blood. No gross mass or obstruction was seen. Scope was advanced to the stomach which was filled with retained food debris. At this time the procedure was aborted. The patient tolerated the procedure well IMPRESSION: 1. Ulceration at the site of gastroesophageal anastomotic site from prior esophagectomy. 2. Large amount of retained food and debris in the entire examined stomach. 3. Aborted EGD. RECOMMENDATIONS: The findings of this examination were discussed with the patient and his . Continue PPI therapy. Unclear if gastric retention is secondary to gastroparesis, however no mechanical obstruction was noted in the stomach. Recommend patient modified diet, to full liquid with dietary supplements with meals. Continue follow-up with oncology service.
[2018-09-07 08:24] VITALS: BP 116/73; PULSE 89
== END 2018-09-07 09:11 | disposition home or self-care (01) ==
LOC: ORWHC2ENDO 06:47
PROVIDERS: ATTEND Internal Medicine
DX: K22.10 Ulcer of esophagus without bleeding (principal); C15.9 Malignant neoplasm of esophagus, unspecified; Z90.49 Acquired absence of other specified parts of digestive tract; Z92.21 Personal history of antineoplastic chemotherapy; Z92.3 Personal history of irradiation; N42.9 Disorder of prostate, unspecified; D75.89 Other specified diseases of blood and blood-forming organs; Z79.84 Long term (current) use of oral hypoglycemic drugs; Z79.899 Other long term (current) drug therapy
CPT/HCPCS: 43235; J2405; J2001; J2704

== ENCOUNTER → 2018-11-13 | Outpatient (CLI) | payer MEDICARE ==
--- NOTE | 2018-11-13 14:48 | CT ---
EXAMINATION TYPE: CT ChestAbdPelvis w con DATE OF EXAM: 11/13/2018 COMPARISON: 08/03/2018 HISTORY: Follow up esophageal cancer. CT DLP: 942.9 mGycm Automated exposure control for dose reduction was used. CONTRAST: CT scan of the chest, abdomen and pelvis is performed with Oral Contrast and with IV Contrast, patien t injected with 100 mL of Isovue M300. FINDINGS: There is moderate size left pleural effusion. There is apparent gastric pull-through procedure with s tomach in the right side of the chest. There is mild pleural thickening at the right lung base. There is mild atelectasis right lung base and left lung base. Spleen is moderately enlarged and measures 14 x 15 cm. There is infiltrative low attenuation area inv olving the body and tail of the pancreas. This measures 8 x 4 cm. There is high attenuation in the de pendent gallbladder. Pancreatic duct is not dilated. Bile ducts are not dilated. There is no adrenal mass. There is 2 cm cortical cyst upper pole right kidney. There is 3 cm cortical cyst lower pole left kidney. There is no hydronephrosis. Ureters are not dilated. Bladder distends s moothly. There is some retained fecal material in the rectum. There are multiple colonic diverticula. There is no sign of diverticulitis. There is no ascites. There is no sign of free air. There is a 2.7 cm mixed density right paratracheal mass consistent with adenopathy increased slightly compared to old exam. There are no hilar masses. Heart size is normal. There is no pericardial effus ion. IMPRESSION: Esophageal surgery. Pleural effusions larger on the left side are increased compared to o ld CT scan and consistent with progression of disease. There is infiltrative large mass involving the body and tail of the pancreas unchanged. Moderate splenomegaly unchanged. There is increased size of right paratracheal mass consistent with progression of disease.
== END | disposition home or self-care (01) ==
LOC: RADCTMAIN 12:27
PROVIDERS: ATTEND Internal Medicine Hematology & Oncology
DX: J90 Pleural effusion, not elsewhere classified (principal); J98.8 Other specified respiratory disorders; K86.89 Other specified diseases of pancreas; R16.1 Splenomegaly, not elsewhere classified; Z98.890 Other specified postprocedural states; C15.9 Malignant neoplasm of esophagus, unspecified
CPT/HCPCS: 71260; 74177; Q9967 ×2

== ENCOUNTER → 2018-11-13 | Outpatient (CLI) | payer MEDICARE | END | disposition home or self-care (01) | LOC: RADCTMAIN 12:20 | PROVIDERS: ATTEND Family Medicine | DX: Z53.9 Procedure and treatment not carried out, unspecified reason (principal) ==

== ENCOUNTER 2018-12-03 07:45 | Day surgery (SDC) | payer MEDICARE ==
[2018-12-03 08:43] LABS: Platelet Count 76 k/uL (150-450)
[2018-12-03 08:54] LABS: Glucose,Whole Blood 165 mg/dL (75-99)
[2018-12-03 08:58] LABS: INR 1.1 (<1.2); Prothrombin Time 11.4 sec (9.0-12.0)
[2018-12-03 09:35] LABS: Mean Platelet Volume 7.3
[2018-12-03 09:36] LABS: Platelet Count 44 k/uL (150-450)
[2018-12-03 11:25] VITALS: RESP 16; TEMP 98.4
--- NOTE | 2018-12-03 11:36 | XR ---
EXAMINATION TYPE: XR chest 1V portable DATE OF EXAM: 12/03/2018 COMPARISON: CT November 13, 2018 HISTORY: History of pancreatic cancer with left-sided thoracentesis for effusion. TECHNIQUE: Single AP portable frontal upright view of the chest is obtained. FINDINGS: New right subclavian Mediport catheter terminating in right atrium. Chronic parenchymal nancie nges with left basilar opacity. No pneumothorax. Cardiac silhouette size is prominent but no cardiomegaly noted on recent CT. There is esophagectomy w ith gastric pull-up causing right basilar lucency. Low lung volumes are present. Surgical changes rig ht shoulder are noted. IMPRESSION: No pneumothorax after left-sided thoracentesis. Residual small left pleural effusion an d associated left basilar atelectasis and/or infiltrate.
[2018-12-03 11:40] VITALS: BP 123/71; PULSE 103
--- NOTE | 2018-12-03 16:18 | US ---
EXAMINATION TYPE: US thoracentesis DATE OF EXAM: 12/03/2018 COMPARISON: NONE HISTORY: Pleural effusion. FINDINGS: Maximal barrier technique was utilized. The skin overlying a suitable pocket of fluid was localized and the overlying skin prepped and draped. Lidocaine was used for local anesthesia. Ultras ound was used with sterile technique. A 5 Italian catheter over guide needle was advanced into the pl eural fluid collection using ultrasound guidance and the needle was removed, catheter advanced. Appr oximately 1.4 liter(s) of serous fluid was removed. Catheter was withdrawn and hemostasis achieved. There is no immediate complication. The patient discharged in stable condition without complication . IMPRESSION: STATUS POST ULTRASOUND GUIDED THORACENTESIS, POST PROCEDURE CHEST X-RAY PENDING. THIS VA OCEDURE WAS PERFORMED BY THE UNDERSIGNED.
== END 2018-12-03 11:50 | disposition home or self-care (01) ==
LOC: RADPROMAIN 07:45
PROVIDERS: ATTEND Internal Medicine Hematology & Oncology
DX: J90 Pleural effusion, not elsewhere classified (principal)
CPT/HCPCS: 88108; 88305; 85049; 85610; 88342; 88341; 71045; 32555; P9035; J1642

== ENCOUNTER → 2019-02-08 | Outpatient (CLI) | payer MEDICARE ==
--- NOTE | 2019-02-08 12:07 | FL ---
EXAMINATION TYPE: FL barium swallow w video DATE OF EXAM: 02/08/2019 MODIFIED SWALLOW / DEGLUTITION STUDY CLINICAL HISTORY: Dysphagia. History of reason significant weight loss and esophageal cancer TECHNIQUE: Deglutition study is performed utilizing thin liquid barium, honey and nectar thick liqui d barium, barium thick applesauce, and barium coated cracker. Total 1 minute 26 seconds. Visualized j oint procedure. 0 spot images are saved to PACS. COMPARISON: None. FINDINGS: The oral and pharyngeal phases show satisfactory initiation and propagation with all modali ties tested. Satisfactory mastication is seen with solid modalities tested. There is no evidence of penetration or aspiration with any modality tested. Mild to severe pharyngeal residuals are appreciat ed in the vallecula and piriform sinuses more prominent with more viscous modalities. [id number] e disc space narrowing and spurring C5-C6 and C6-C7 levels is incidentally noted. IMPRESSION: Some prominent residuals without penetration or aspiration seen. Please refer to speech therapist notes for further details if necessary.
== END | disposition home or self-care (01) ==
LOC: RADFLMAIN 10:42
PROVIDERS: ATTEND Otolaryngology
DX: R13.10 Dysphagia, unspecified (principal)
CPT/HCPCS: 74230

== ENCOUNTER → 2019-02-24 | Outpatient (CLI) | payer MEDICARE ==
[2019-02-24 10:21] LABS: African American GFR (CKD) >90 (>60 ml/min/1.73 sqM); Blood Urea Nitrogen 18 mg/dL (9-20); Non-African American GFR(CKD) >90 (>60 ml/min/1.73 sqM)
--- NOTE | 2019-02-24 12:36 | CT ---
EXAMINATION TYPE: CT ChestAbdPelvis w con DATE OF EXAM: 02/24/2019 COMPARISON: 11/13/2018 and 08/03/2018 HISTORY: 74-year-old male follow-up Esophagus cancer TECHNIQUE: Contiguous axial scanning of the chest, abdomen, and pelvis performed with IV Contrast, pa tient injected with 100 ml mL of Isovue 300. Delayed images through the kidneys were obtained. Russ l/sagittal reconstructions performed. CT DLP: 1714 mGycm Automated exposure control for dose reduction was used. FINDINGS: CHEST: Heart normal size without any sizable pericardial effusion. Mild coronary vessel calcifications are p resent. Right anterior chest wall injection port with catheter tip at the cavoatrial junction. Redemonstrated postsurgical changes of esophagectomy with gastric pull-through procedure. There is persistent small left pleural effusion though decreased in size from prior exam and new smal l right pleural effusion. Some interstitial nodularity and bronchial wall thickening is noted through out the lungs. Some of the interstitial thickening is increased as compared to prior exam. No dominan t increasing pulmonary nodule. Abnormal soft tissue mass redemonstrated along the high right paratracheal region measuring up to 4.0 x 3.2 cm versus 3.1 x 2.6 cm, previously this is located along the posterior aspect of the upper bra chiocephalic artery and seems to partially encase the proximal right subclavian artery which is mildl y narrowed now. ABDOMEN: 8 mm hypodensity within the mid aspect of the upper liver was not seen previously, axial image 54. Numerous small layering gallstones. No abnormal gallbladder distention. Possible new 1.3 cm left adrenal nodularity, axial image 71. Multiple renal cysts measuring up to 3.2 cm are unchanged. Persistent marked splenomegaly at 22.6 cm, relatively similar. Heterogeneous mass of the pancreatic tail and body redemonstrated measuring 8.4 x 4.6 cm (versus 8.8 x 4.5 cm on 10/13/2018 and 8.0 x 4.1 cm on 08/03/2018). Some new borderline-sized retroperitoneal lymph nodes are now noted measuring up to 7 mm, refer to ax ial image 79 and 80. Nodularity just anterior to the INDIO takeoff measures 1.8 x 1.2 cm and is new, ax ial image 89. Trace perihepatic and perisplenic ascites is new. No dilated small bowel or free air. Scattered moderate stool in the right side of the abdomen. Left-sided colonic diverticulosis. PELVIS: Moderate to large pelvic ascites is new. Surgical clips along the right external iliac chain. Possible moderate circumferential wall thickening of the distal rectum, refer to axial image 134. Mil d presacral edema. No definite pelvic lymphadenopathy. BONES: Mild degenerative changes of the hips. Moderate degenerative disc disease L5-S1. Facet arthropathy lo wer lumbar spine. Mild anterior endplate spondylosis mid to lower thoracic spine. Suture anchors righ t humeral head from prior rotator cuff repair. No osseous destructive process seen. IMPRESSION: 1. POST SURGICAL CHANGE OF PRIOR ESOPHAGECTOMY AND GASTRIC PULL-THROUGH. 2. SUPERIOR RIGHT PARATRACHEAL LYMPH NODE SHOWS SLIGHT ENLARGEMENT NOW MEASURING 4.0 X 3.2 CM (VERSUS 3.1 X 2.6 CM, PREVIOUSLY. THIS NOW PARTIALLY ENCASES AND MILDLY NARROW THE PROXIMAL RIGHT SUBCLAVIAN ARTERY. 3. LARGE HETEROGENEOUS MASS INVOLVING THE PANCREATIC TAIL AND BODY SHOW SLIGHT INCREASE IN SIZE FROM 08/03/2018 (8.4 X 4.6 CM NOW VERSUS 8.0 X 4.1 CM, PREVIOUSLY). 4. INCREASING SIZE OF A FEW RETROPERITONEAL LYMPH NODES, LARGEST AT THE LEVEL OF THE INDIO MEASURES 1.8 X 1.2 CM AND IS NEW AND SUSPICIOUS. 5. INDETERMINATE 8 MM HYPODENSE LESION WITHIN THE MID LIVER IS INDETERMINATE. HOWEVER, IT WAS NOT SEEN PREVIOUSLY, A SMALL HEPATIC METASTASIS IS DIFFICULT TO EXCLUDE AT THIS TIME. THERE ALSO APPEARS TO BE A NEW 1.3 CM LEFT ADRENAL NODULE. 6. SEVERE SPLENOMEGALY REDEMONSTRATED (22.6 CM). 7. PERSISTENT SMALL LEFT PLEURAL EFFUSION WITH NEW SMALL RIGHT PLEURAL EFFUSION. NEW MILD UPPER ABDOM INAL ASCITES AND MODERATE TO LARGE PELVIC ASCITES. CORRELATE FOR FLUID OVERLOAD STATE. 8. OVERALL STABLE NODULARITY WITHIN THE MID AND LOWER LUNGS POSSIBLY CHRONIC POSTINFLAMMATORY SEQUELA OR ASPIRATION. SOME INCREASING INTERSTITIAL DENSITIES COULD REFLECT PULMONARY VASCULAR CONGESTION OR BRONCHITIS/ATYPICAL PNEUMONIAS. 9. POSSIBLE CIRCUMFERENTIAL WALL THICKENING AT THE DISTAL RECTUM VERSUS REDUNDANT MUCOSA AND APPOSING STOOL. CORRELATE WITH DIRECT VISUALIZATION INDICATED.
== END | disposition home or self-care (01) ==
LOC: RADCTMAIN 09:42
PROVIDERS: ATTEND Internal Medicine Hematology & Oncology
DX: J90 Pleural effusion, not elsewhere classified (principal); R18.8 Other ascites; R16.1 Splenomegaly, not elsewhere classified; C15.9 Malignant neoplasm of esophagus, unspecified
CPT/HCPCS: 36415; 71260; 74177; 82565; 84520

== ENCOUNTER → 2019-03-02 | Outpatient (CLI) | payer MEDICARE ==
[2019-03-02 14:33] LABS: African American GFR (CKD) >90 (>60 ml/min/1.73 sqM); Blood Urea Nitrogen 16 mg/dL (9-20); Non-African American GFR(CKD) >90 (>60 ml/min/1.73 sqM)
--- NOTE | 2019-03-03 08:16 | CT ---
EXAMINATION TYPE: CT brain wo/w con DATE OF EXAM: 03/02/2019 COMPARISON: None HISTORY: 74-year-old male Esophageal ca, observe for mets TECHNIQUE: Examination was done in axial plane before and after administration of 100 mL Isovue-300 intravenous contrast. Coronal and sagittal reconstructions performed. CT DLP: 2379.90 mGycm Automated exposure control for dose reduction was used. FINDINGS: There is no evidence of acute intracranial hemorrhage, acute ischemic changes, mass, mass-effect, or extra-axial fluid collection. There is no effacement of cerebral sulci or basal subarachnoid cister ns. There is no hydrocephalus. There is no midline shift. Gallo-white matter distinction is preserv ed. Dural venous sinuses are patent. Left vertebral artery is dominant. Mild atherosclerotic calcificatio ns within the carotid siphons. No enhancing intracranial lesions seen. Mild patchy periventricular white matter hypodensity suggests changes of chronic small vessel ischemi c disease. Cerumen within the bilateral external auditory canals. Small mucosal retention cysts posterior velez of the maxillary sinuses. Rightward nasal septal deviation. Orbits and globes appear intact. IMPRESSION: No acute intracranial abnormality seen. Mild changes of chronic small vessel ischemic disease. No enh ancing intracranial lesions by CT. If more sensitive evaluation is indicated, MRI could be considered .
--- NOTE | 2019-03-03 08:24 | CT ---
EXAMINATION TYPE: CT soft tissue neck w con DATE OF EXAM: 03/02/2019 COMPARISON: Correlation CT body 02/24/2019 and PET/CT 02/06/2018 HISTORY: 74-year-old male Esophageal ca, observe for mets TECHNIQUE: Contiguous axial scanning of the soft tissues of the neck performed with IV Contrast, edie ent injected with 100 mL of Isovue 300. Coronal and sagittal reconstructions performed. CT DLP: 330.50 mGycm Automated exposure control for dose reduction was used. FINDINGS: Right anterior chest wall injection port. Known abnormal soft tissue along the medial aspect of right thoracic inlet encasing the bifurcation o f the brachiocephalic artery measuring up to 6.4 cm craniocaudal and 3.9 x 3.6 cm in the axial plane, mildly narrowing the proximal right subclavian artery. Underlying pleural effusions appear to have increased from 02/24/2019. No additional cervical lymphadenopathy identified. The thyroid gland appears satisfactory. Mild atrophy of both the submandibular and parotid glands. Orbits and globes and mastoid air cells appear clear. Rightward nasal septal deviation. Nasopharynx appears clear. Epiglottis and prevertebral soft tissues within normal limits. Oropharynx appears clear. Glottic and subglottic structures as well as the tracheal column appear clear. Bones: Moderate to advanced degenerative disc disease lower cervical spine along with facet arthropat hy. IMPRESSION: 1. KNOWN METASTATIC DEPOSIT MEDIAL ASPECT OF THE RIGHT THORACIC INLET ENCASING THE BIFURCATION OF THE BRACHIOCEPHALIC ARTERY AND MILDLY NARROWING THE PROXIMAL RIGHT SUBCLAVIAN ARTERY. THIS MEASURES UP T O 6.4 CM CRANIOCAUDAL AND 3.9 X 2.6 CM IN THE AXIAL PLANE. 2. NO ADDITIONAL SUSPICIOUS CERVICAL LYMPHADENOPATHY SEEN. 3. ENLARGING PLEURAL EFFUSIONS COMPARED TO THE CT OF 02/24/2019.
== END | disposition home or self-care (01) ==
LOC: RADCTMAIN 13:45
PROVIDERS: ATTEND Internal Medicine Hematology & Oncology
DX: I67.82 Cerebral ischemia (principal); C15.9 Malignant neoplasm of esophagus, unspecified; C79.89 Secondary malignant neoplasm of other specified sites
CPT/HCPCS: 82565; 84520; 70491; 70470; 36415; Q9967

== ENCOUNTER 2019-03-07 09:06 | Inpatient (IN) | payer MEDICARE ==
[2019-03-07] MEDS ORDERED: IPRATROPIUM-ALBUTEROL 3 ML NEB INHALATION STA ×2 (09:41→13:46)
--- NOTE | 2019-03-07 09:45 | ED ---
General Adult HPI - General Chief complaint: Shortness of Breath Stated complaint: KAY Time Seen by Provider: 03/07/19 09:12 Source: patient, family, EMS, RN notes reviewed Mode of arrival: EMS Limitations: no limitations - History of Present Illness Initial comments: Patient is a pleasant 74-year-old male presenting to the emergency department with difficulty breathing. Onset of symptoms was around a week ago. Symptoms have progressed since that time. Patient does have known advanced stage IV esophageal cancer with metastasis. Last chemo was 2 weeks ago. Disease has progressed on recent evaluation. Patient does have known metastasis to the lung as well as known pleural effusion. Minimal cough. No fever. No chest pain or palpitations. Patient has been eating drinking okay. Patient has been more fatigued recently. No leg pain or leg swelling. No history of chronic lung disease. - Related Data Home Medications Medication Instructions Recorded Confirmed Imipramine HCl [Tofranil] 50 mg PO BID 07/21/14 03/07/19 Lansoprazole 30 mg PO DAILY 07/25/16 03/07/19 Metoprolol Tartrate 25 mg PO BID 07/25/16 03/07/19 Ondansetron HCl [Zofran] 4 mg PO Q8H PRN 12/15/17 03/07/19 Prochlorperazine [Compazine] 10 mg PO Q6H PRN 12/15/17 03/07/19 Acetaminophen [Tylenol] 650 mg PO Q6H PRN 03/07/19 03/07/19 Gabapentin [Neurontin] 200 mg PO BID 03/07/19 03/07/19 metFORMIN HCL [Glucophage] 500 mg PO DAILY 03/07/19 03/07/19 Allergies Allergy/AdvReac Type Severity Reaction Status Date / Time No Known Allergies Allergy Verified 03/07/19 11:32 Review of Systems ROS Statement: Those systems with pertinent positive or pertinent negative responses have been documented in the HPI. ROS Other: All systems not noted in ROS Statement are negative. Constitutional: Denies: fever Eyes: Denies: eye pain ENT: Denies: ear pain Respiratory: Reports: as per HPI, dyspnea Cardiovascular: Denies: chest pain Endocrine: Reports: fatigue Gastrointestinal: Denies: abdominal pain Genitourinary: Denies: dysuria Musculoskeletal: Denies: back pain Skin: Denies: rash Neurological: Denies: weakness Past Medical History Past Medical History: Blood Disorder, Cancer, GERD/Reflux, Pneumonia, Prostate Disorder Additional Past Medical History / Comment(s): RECURRENT STAGE 4 ESOPHAGEAL CANCER DX 11/19/17. Hx "rapid heart rate", hx esophageal cancer 2015 with radiation and chemo, hx prostate cancer prior to esophageal ca, had radiation. Hx hiatal hernia, hx anemia. 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 Hx Pnemonia few yrs ago. Ringing in ears. History of Any Multi-Drug Resistant Organisms: None Reported Past Surgical History: Appendectomy, Hernia Repair, Orthopedic Surgery, Prostate Surgery Additional Past Surgical History / Comment(s): Surgery for esophageal cancer, right shoulder surgery. Past Anesthesia/Blood Transfusion Reactions: Previous Problems w/ Anesthesia, Motion Sickness, Postoperative Nausea & Vomiting (PONV) Additional Past Anesthesia/Blood Transfusion Reaction / Comment(s): Hard time waking up. Past Psychological History: No Psychological Hx Reported Smoking Status: Never smoker Past Alcohol Use History: None Reported Past Drug Use History: None Reported - Past Family History Mother Family Medical History: Cancer Brother(s) Family Medical History: Cancer Additional Family Medical History / Comment(s): Prostate cancer. General Exam Limitations: no limitations General appearance: alert, in no apparent distress Head exam: Present: normocephalic Eye exam: Present: normal appearance, PERRL ENT exam: Present: normal oropharynx Neck exam: Present: normal inspection Respiratory exam: Present: wheezes (Mild) Cardiovascular Exam: Present: tachycardia GI/Abdominal exam: Present: soft. Absent: distended, tenderness Extremities exam: Present: normal inspection. Absent: pedal edema, calf tenderness Neurological exam: Present: alert Psychiatric exam: Present: normal affect, normal mood Skin exam: Present: normal color Course Vital Signs 03/07/19 03/07/19 03/07/19 09:14 09:41 10:15 Temperature 97.5 F L Pulse Rate 117 H 117 H Respiratory 18 18 Rate Blood Pressure 112/89 O2 Sat by Pulse 97 Oximetry 03/07/19 10:22 Temperature Pulse Rate 121 H Respiratory Rate Blood Pressure O2 Sat by Pulse Oximetry EKG Findings - EKG Comments: EKG Findings:: Sinus tachycardia 1:15. WA 144. QRS 90. QT 346. QTc 470. Left axis. Normal QRS. No acute ST change. Medical Decision Making - Medical Decision Making Patient reevaluated and resting comfortably in bed. Patient states dyspnea is significantly improved with oxygen. Patient and family updated on results and plan. Case was discussed in detail with Dr. Grant, who will admit covering for Dr. Wren. - Lab Data Result diagrams: 03/07/19 09:37 03/07/19 09:37 Lab Results 03/07/19 03/07/19 03/07/19 Range/Units 09:37 09:37 09:37 WBC 7.1 (3.8-10.6) k/uL RBC 4.80 (4.30-5.90) m/uL Hgb 14.2 (13.0-17.5) gm/dL Hct 43.7 (39.0-53.0) % MCV 91.1 (80.0-100.0) fL MCH 29.5 (25.0-35.0) pg MCHC 32.4 (31.0-37.0) g/dL RDW 17.1 H (11.5-15.5) % Plt Count 84 L (150-450) k/uL Neutrophils % (Manual) 79 % Lymphocytes % (Manual) 6 % Monocytes % (Manual) 13 % Eosinophils % (Manual) 2 % Neutrophils # (Manual) 5.61 (1.3-7.7) k/uL Lymphocytes # (Manual) 0.43 L (1.0-4.8) k/uL Monocytes # (Manual) 0.92 (0-1.0) k/uL Eosinophils # (Manual) 0.14 (0-0.7) k/uL Nucleated RBCs 0 (0-0) /100 WBC Differential Comment P PT (9.0-12.0) sec INR (<1.2) APTT (22.0-30.0) sec Sodium 139 (137-145) mmol/L Potassium 3.7 (3.5-5.1) mmol/L Chloride 104 (98-107) mmol/L Carbon Dioxide 26 (22-30) mmol/L Anion Gap 9 mmol/L BUN 18 (9-20) mg/dL Creatinine 0.65 L (0.66-1.25) mg/dL Est GFR (CKD-EPI)AfAm >90 (>60 ml/min/1.73 sqM) Est GFR (CKD-EPI)NonAf >90 (>60 ml/min/1.73 sqM) Glucose 134 H (74-99) mg/dL Calcium 8.7 (8.4-10.2) mg/dL Total Bilirubin 1.4 H (0.2-1.3) mg/dL AST 25 (17-59) U/L ALT 9 (4-49) U/L Alkaline Phosphatase 97 (38-126) U/L NT-Pro-B Natriuret Pep 144 pg/mL Total Protein 5.7 L (6.3-8.2) g/dL Albumin 3.1 L (3.5-5.0) g/dL 03/07/19 Range/Units 09:37 WBC (3.8-10.6) k/uL RBC (4.30-5.90) m/uL Hgb (13.0-17.5) gm/dL Hct (39.0-53.0) % MCV (80.0-100.0) fL MCH (25.0-35.0) pg MCHC (31.0-37.0) g/dL RDW (11.5-15.5) % Plt Count (150-450) k/uL Neutrophils % (Manual) % Lymphocytes % (Manual) % Monocytes % (Manual) % Eosinophils % (Manual) % Neutrophils # (Manual) (1.3-7.7) k/uL Lymphocytes # (Manual) (1.0-4.8) k/uL Monocytes # (Manual) (0-1.0) k/uL Eosinophils # (Manual) (0-0.7) k/uL Nucleated RBCs (0-0) /100 WBC Differential Comment PT 11.2 (9.0-12.0) sec INR 1.1 (<1.2) APTT 25.3 (22.0-30.0) sec Sodium (137-145) mmol/L Potassium (3.5-5.1) mmol/L Chloride (98-107) mmol/L Carbon Dioxide (22-30) mmol/L Anion Gap mmol/L BUN (9-20) mg/dL Creatinine (0.66-1.25) mg/dL Est GFR (CKD-EPI)AfAm (>60 ml/min/1.73 sqM) Est GFR (CKD-EPI)NonAf (>60 ml/min/1.73 sqM) Glucose (74-99) mg/dL Calcium (8.4-10.2) mg/dL Total Bilirubin (0.2-1.3) mg/dL AST (17-59) U/L ALT (4-49) U/L Alkaline Phosphatase (38-126) U/L NT-Pro-B Natriuret Pep pg/mL Total Protein (6.3-8.2) g/dL Albumin (3.5-5.0) g/dL - Radiology Data Radiology results: image reviewed (Chest x-ray shows increasing size of pleural effusion) Disposition Clinical Impression: Pleural effusion Disposition: ADMITTED IP TO THIS HOSP Is patient prescribed a controlled substance at d/c from ED?: No Referrals: Maria Antonia Wren DO [Primary Care Provider] - 1-2 days Decision Time: 11:46
[2019-03-07 10:05] LABS: INR 1.1 (<1.2); Partial Thromboplastin Time 25.3 sec (22.0-30.0); Prothrombin Time 11.2 sec (9.0-12.0)
[2019-03-07 10:10] LABS: ALT 9 U/L (4-49); AST 25 U/L (17-59); African American GFR (CKD) >90 (>60 ml/min/1.73 sqM); Albumin 3.1 g/dL (3.5-5.0); Alkaline Phosphatase 97 U/L (38-126); Anion Gap 9 mmol/L; Blood Urea Nitrogen 18 mg/dL (9-20); Calcium 8.7 mg/dL (8.4-10.2); Carbon Dioxide 26 mmol/L (22-30); Chloride 104 mmol/L (98-107); Glucose 134 mg/dL (74-99); Non-African American GFR(CKD) >90 (>60 ml/min/1.73 sqM); Potassium 3.7 mmol/L (3.5-5.1); Sodium 139 mmol/L (137-145); Total Bilirubin 1.4 mg/dL (0.2-1.3); Total Protein 5.7 g/dL (6.3-8.2)
[2019-03-07] MEDS ORDERED: MORPHINE SULFATE 4 MG/ML SYRINGE IVP STA (10:20)
[2019-03-07] MEDS ORDERED: ONDANSETRON 4 MG/2 ML VIAL IVP STA (10:21)
--- NOTE | 2019-03-07 10:29 | XR ---
EXAMINATION TYPE: XR chest 2V DATE OF EXAM: 03/07/2019 COMPARISON: CT 11 days ago. Chest x-ray December 03, 2018 HISTORY: History of esophageal cancer with shortness of breath for 4 days. TECHNIQUE: Frontal and lateral views of the chest are obtained. FINDINGS: Stable right subclavian Mediport catheter. Retrocardiac opacity consistent with gastric pu ll-up along right heart border redemonstrated. Worsening bilateral pleural effusions and bibasilar op acities. Upper lungs are clear without pneumothorax. Trachea remains prominent or dilated cardiac alberto houette size stable and presumed within normal limits. Osseous structures are intact. IMPRESSION: Worsening now moderate sized bilateral pleural effusions along with moderate central vas cular congestion suggests fluid overload state. There is worsening bibasilar acute infiltrate and/or atelectasis also noted.
[2019-03-07 10:31] LABS: Neutrophils % (M) 79 %; Nucleated Red Blood Cells 0 /100 WBC (0-0); Total Cells Counted 100
[2019-03-07 10:32] LABS: Platelet Count 84 k/uL (150-450)
[2019-03-07 10:35] LABS: Eosinophils # (M) 0.14 k/uL (0-0.7); Lymphocytes # (M) 0.43 k/uL (1.0-4.8); Monocytes # (M) 0.92 k/uL (0-1.0); Neutrophils # (M) 5.61 k/uL (1.3-7.7); WBC 7.1 k/uL (3.8-10.6)
[2019-03-07 10:36] LABS: HCT 43.7 % (39.0-53.0); HGB 14.2 gm/dL (13.0-17.5); MCH 29.5 pg (25.0-35.0); MCHC 32.4 g/dL (31.0-37.0); MCV 91.1 fL (80.0-100.0); Mean Platelet Volume 9.4; RDW 17.1 % (11.5-15.5)
[2019-03-07] MEDS ORDERED: NALOXONE 0.4 MG/ML 1 ML VIAL IV PRN (11:47)
--- NOTE | 2019-03-07 12:34 | P.HPIM ---
History of Present Illness This is a pleasant 74 years old male with past medical history of recurrent stage IV esophageal cancer, status post chemoradiotherapy, prostate cancer status post radiation, hiatal hernia, GERD, pneumonia. Presents because of dyspnea of more than one week duration getting worse over the last few days, with no chest pain. Patient has chronic dry cough for the last 4-5 months. Patient also complaining of from lower abdominal pain with little blood in his urine but no change in his bowel movements Patient has recent CAT scan of the abdomen and chest done with his oncologist Dr. Swenson showing multiple areas of mass/nodularity suspicious for metastasis including lung mass about 4 cm, hepatic nodule about 8 mm, pancreatic nodules and left adrenal nodule about 1.3 cm and ascites Patient is tachycardic with heart rate 03/11/2019 he is saturating 97% on room air. Labs unremarkable including CBC, INR, BMP and liver enzymes. Troponin is mildly elevated at 1.4. EKG: Sinus tachycardia at [address]-T changes. Chest x-ray: Worsening bilateral pleural effusion with pulmonary congestion and possible bibasilar infiltrates/atelectasis In the emergency room patient was given a breathing treatment Review of Systems CONSTITUTIONAL: No fever, no malaise, no fatigue. HEENT: No recent visual problems or hearing problems. Denied any sore throat. CARDIOVASCULAR: No orthopnea, PND, no palpitations, no syncope. PULMONARY: No shortness of breath, no cough, no hemoptysis. GASTROINTESTINAL: No diarrhea, no nausea, no vomiting, no abdominal pain. Normoactive bowel sounds. NEUROLOGICAL: No headaches, no weakness, no numbness. HEMATOLOGICAL: Denies any bleeding or petechiae. GENITOURINARY: Denies any burning micturition, frequency, or urgency. MUSCULOSKELETAL/RHEUMATOLOGICAL: Denies any joint pain, swelling, or any muscle pain. ENDOCRINE: Denies any polyuria or polydipsia. Past Medical History Past Medical History: Blood Disorder, Cancer, GERD/Reflux, Pneumonia, Prostate Disorder Additional Past Medical History / Comment(s): RECURRENT STAGE 4 ESOPHAGEAL CANCER DX 11/19/17. Hx "rapid heart rate", hx esophageal cancer 2014 with radiation and chemo, hx prostate cancer prior to esophageal ca, had radiation. Hx hiatal hernia, hx anemia. 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 Hx Pnemonia few yrs ago. Ringing in ears. History of Any Multi-Drug Resistant Organisms: None Reported Past Surgical History: Appendectomy, Hernia Repair, Orthopedic Surgery, Prostate Surgery Additional Past Surgical History / Comment(s): Surgery for esophageal cancer, right shoulder surgery. Past Anesthesia/Blood Transfusion Reactions: Previous Problems w/ Anesthesia, Motion Sickness, Postoperative Nausea & Vomiting (PONV) Additional Past Anesthesia/Blood Transfusion Reaction / Comment(s): Hard time waking up. Past Psychological History: No Psychological Hx Reported Smoking Status: Never smoker Past Alcohol Use History: None Reported Past Drug Use History: None Reported - Past Family History Mother Family Medical History: Cancer Brother(s) Family Medical History: Cancer Additional Family Medical History / Comment(s): Prostate cancer. Medications and Allergies Home Medications Medication Instructions Recorded Confirmed Type Imipramine HCl [Tofranil] 50 mg PO BID 07/21/14 03/07/19 History Lansoprazole 30 mg PO DAILY 07/25/16 03/07/19 History Metoprolol Tartrate 25 mg PO BID 07/25/16 03/07/19 History Ondansetron HCl [Zofran] 4 mg PO Q6H PRN 12/15/17 03/07/19 History Prochlorperazine [Compazine] 10 mg PO Q6H PRN 12/15/17 03/07/19 History Acetaminophen [Tylenol] 650 mg PO Q6H PRN 03/07/19 03/07/19 History Gabapentin [Neurontin] 200 mg PO BID 03/07/19 03/07/19 History metFORMIN HCL [Glucophage] 500 mg PO DAILY 03/07/19 03/07/19 History Allergies Allergy/AdvReac Type Severity Reaction Status Date / Time No Known Allergies Allergy Verified 03/07/19 11:32 Physical Exam Vitals: Vital Signs Temp Pulse Resp BP Pulse Ox 03/07/19 11:47 120 H 18 125/82 96 03/07/19 10:22 121 H 03/07/19 10:15 117 H 03/07/19 09:41 18 03/07/19 09:14 97.5 F L 117 H 18 112/89 97 Intake and Output 03/06/19 03/07/19 03/07/19 22:59 06:59 14:59 Other: Weight 77.111 kg -GENERAL: The patient is alert and oriented x3, not in any acute distress. cachectic HEENT: Pupils are round and equally reacting to light. EOMI. No scleral icterus. No conjunctival pallor. Normocephalic, atraumatic. No pharyngeal erythema. No thyromegaly. CARDIOVASCULAR: S1 and S2 present. No murmurs, rubs, or gallops. -PULMONARY: Tachypneic, Chest is clear to auscultation, decreased breath sounds on both sides with basal crepitation ABDOMEN: Soft, nontender, nondistended, normoactive bowel sounds. No palpable organomegaly. MUSCULOSKELETAL: No joint swelling or deformity. EXTREMITIES: No cyanosis, clubbing, or pedal edema. NEUROLOGICAL: Gross neurological examination did not reveal any focal deficits. SKIN: No rashes. No petechiae Results CBC & Chem 7: 03/07/19 09:37 03/07/19 09:37 Labs: Abnormal Lab Results - Last 24 Hours (Table) 03/07/19 03/07/19 Range/Units 09:37 09:37 RDW 17.1 H (11.5-15.5) % Plt Count 84 L (150-450) k/uL Lymphocytes # (Manual) 0.43 L (1.0-4.8) k/uL Creatinine 0.65 L (0.66-1.25) mg/dL Glucose 134 H (74-99) mg/dL Total Bilirubin 1.4 H (0.2-1.3) mg/dL Total Protein 5.7 L (6.3-8.2) g/dL Albumin 3.1 L (3.5-5.0) g/dL Assessment and Plan Assessment: Pulmonary congestion suspicious for acute heart failure Bilateral pleural effusion Bilateral basal atelectasis Recurrent stage IV esophageal cancer, with possible multiple metastasis including lung mass about 4 cm, hepatic nodule about 8 mm, pancreatic nodules and left adrenal nodule about 1.3 cm and ascites Status post chemoradiotherapy History of prostate cancer status post radiation Hiatal hernia Gastroesophageal reflux disease History of pneumonia Plan: This is a pleasant 75 years old male who presents with pulmonary congestion pleural effusion. Continue with Lasix. Consult oncology and pulmonary services. No echocardiogram on the ultrasound of the chest. Check urinalysis and bladder scan Labs and medication were reviewed.. Continue same treatment. Continue with symptomatic treatment. Resume home medication. Monitor lytes and vitals. DVT and GI prophylaxis. Further recommendations of the clinical course of the patient DVT prophylaxis: Subcutaneous heparin GI prophylaxis: Pepcid CODE STATUS: Discussed with the patient and he wants to be full code for now Prognosis is guarded
--- NOTE | 2019-03-07 13:26 | US ---
EXAMINATION TYPE: US chest DATE OF EXAM: 03/07/2019 COMPARISON: Chest x-ray 03/07/2019 CLINICAL HISTORY: pl effusion. Pleural effusion. TECHNIQUE: Targeted ultrasound of the posterior lower left and right hemithorax EXAM MEASUREMENTS: Right Pleural Effusion pocket size: 3.3 cm Right skin surface to fluid distance: 3.2 cm Left Pleural Effusion pocket size: 11.2 cm lung tissue visualized at 5.5 cm. Left skin surface to fluid distance: 1.8 cm Left side marked for possible thoracentesis outside the dept. Pulmonologists are able to review the images in the patient?s EMR. IMPRESSIONS: Large left pleural effusion, small right pleural effusion
[2019-03-07 14:21] LABS: Appearance,Urine Cloudy (Clear); Bilirubin,Urine Negative (Negative); Blood,Urine Negative (Negative); Calcium Oxalate Crystals,Urine Occasional /hpf; Color,Urine Yellow; Glucose,Urine (UA) Negative (Negative); Hyaline Casts,Urine 9 /lpf (0-2); Ketones,Urine Trace (Negative); Leukocyte Esterase,Urine Trace (Negative); Mucus,Urine Many /hpf; Nitrite,Urine Negative (Negative); PH, Urine 5.5 (5.0-8.0); Protein,Urine 1+ (Negative); RBC,Urine 9 /hpf (0-5); Specific Gravity,Urine 1.035 (1.001-1.035); Squamous Epithelial Cell,Urine <1 /hpf (0-4); WBC,Urine 12 /hpf (0-5)
[2019-03-07] MEDS: FUROSEMIDE 10 MG/ML 4 ML VIAL IV SCH ×2 (14:30→20:31)
--- NOTE | 2019-03-07 14:36 | P.CNPUL ---
History of Present Illness Consult date: 03/07/19 Requesting physician: Jcarlos Nova Reason for consult: dyspnea, pleural effusion Chief complaint: bilateral pleural effusions, dyspnea History of present illness: 74-year-old male patient with history of recurrentmetastatic stage IV esophageal cancer, on chemoradiation, last chemotherapy 2 weeks ago and evidence of disease progression on last evaluation who presented to the emergency departm ent on 03/07/2019 with complaints of progressive dyspnea. Other medical history includes prostate cancer status post radiation, hiatal hernia, GERD, and previous episodes of pneumonia. Most recent computed tomography scan of the chest abdomen and pelvis on February 24, 2019 showed multiple areas of nodularity including superior right peritracheal lymph node with slight enlargement, which now partially encases and mildly narrows the proximal right subclavian artery, large mass involving the pancreatic tail, increasing to a peritoneal lymph nodes, and determine and hypodense lesion within the mid liver. In addition there was a persistent small left pleural effusion with new small right pleural effusion, new mild upper abdominal ascites and moderate to large pelvic ascites. chest x-ray was completed showing worsening now moderate-sized bilateral pleural effusions with moderate central vascular congestion suggesting fluid overload state. EGD showed sinus tachycardia with a rate of 1:15 BPM, ultrasound of the chest was completed showing right pleural effusion pocket of 3.3 cm and left pleural effusion pocket of 11.2 cm with the lung tissue visualized at 5.5 cm. hPatient was started on IV Lasix at 40 mg every 12 hours IV push, were asked to see the patient in evaluation for bilateral pleural effusions. Labs were reviewed showing a white blood cell count of 7.1, hemoglobin of 14.2, platelet count of 84, coagulation profile within normal limits, electrolytes were within normal limits, BUN is 18 creatinine is 0.65, LFTs were within normal limits, proBNP was 144. Review of Systems All systems: negative Constitutional: Denies chills, Denies fever Eyes: denies blurred vision, denies pain Ears, nose, mouth and throat: Denies headache, Denies sore throat Cardiovascular: Denies chest pain, Denies shortness of breath Respiratory: Reports dyspnea, Denies cough Gastrointestinal: Denies abdominal pain, Denies diarrhea, Denies nausea, Denies vomiting Musculoskeletal: Denies myalgias Integumentary: Denies pruritus, Denies rash Neurological: Denies numbness, Denies weakness Psychiatric: Denies anxiety, Denies depression Endocrine: Denies fatigue, Denies weight change Past Medical History Past Medical History: Blood Disorder, Cancer, GERD/Reflux, Pneumonia, Prostate Disorder Additional Past Medical History / Comment(s): RECURRENT STAGE 4 ESOPHAGEAL CANCER DX 11/19/17. Hx "rapid heart rate", hx esophageal cancer 2014 with radiation and chemo, hx prostate cancer prior to esophageal ca, had radiation. Hx hiatal hernia, hx anemia. 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 Hx Pnemonia few yrs ago. Ringing in ears. History of Any Multi-Drug Resistant Organisms: None Reported Past Surgical History: Appendectomy, Hernia Repair, Orthopedic Surgery, Prostate Surgery Additional Past Surgical History / Comment(s): Surgery for esophageal cancer, right shoulder surgery. Past Anesthesia/Blood Transfusion Reactions: Previous Problems w/ Anesthesia, Mo tion Sickness, Postoperative Nausea & Vomiting (PONV) Additional Past Anesthesia/Blood Transfusion Reaction / Comment(s): Hard time waking up. Past Psychological History: No Psychological Hx Reported Smoking Status: Never smoker Past Alcohol Use History: None Reported Past Drug Use History: None Reported - Past Family History Mother Family Medical History: Cancer Brother(s) Family Medical History: Cancer Additional Family Medical History / Comment(s): Prostate cancer. Medications and Allergies Home Medications Medication Instructions Recorded Confirmed Type Imipramine HCl [Tofranil] 50 mg PO BID 07/21/14 03/07/19 History Lansoprazole 30 mg PO DAILY 07/25/16 03/07/19 History Metoprolol Tartrate 25 mg PO BID 07/25/16 03/07/19 History Ondansetron HCl [Zofran] 4 mg PO Q6H PRN 12/15/17 03/07/19 History Prochlorperazine [Compazine] 10 mg PO Q6H PRN 12/15/17 03/07/19 History Acetaminophen [Tylenol] 650 mg PO Q6H PRN 03/07/19 03/07/19 History Gabapentin [Neurontin] 200 mg PO BID 03/07/19 03/07/19 History metFORMIN HCL [Glucophage] 500 mg PO DAILY 03/07/19 03/07/19 History Allergies Allergy/AdvReac Type Severity Reaction Status Date / Time No Known Allergies Allergy Verified 03/07/19 11:32 Physical Exam Vitals: Vital Signs Temp Pulse Resp BP Pulse Ox 03/07/19 11:47 120 H 18 125/82 96 03/07/19 10:22 121 H 03/07/19 10:15 117 H 03/07/19 09:41 18 03/07/19 09:14 97.5 F L 117 H 18 112/89 97 Intake and Output 03/06/19 03/07/19 03/07/19 22:59 06:59 14:59 Other: Weight 77.111 kg GENERAL EXAM: Alert, very pleasant, 74-year-old white male, on 4 L of oxygen with a pulse ox of 96%, comfortable in no apparent distress. HEAD: Normocephalic/atraumatic. EYES: Normal reaction of pupils, equal size. Conjunctiva pink, sclera white. NOSE: Clear with pink turbinates. THROAT: No erythema or exudates. NECK: No masses, no JVD, no thyroid enlargement, no adenopathy. CHEST: No chest wall deformity. Symmetrical expansion. LUNGS: Equal air entry with diminished breath sounds at the bases CVS: Regular rate and rhythm, normal S1 and S2, no gallops, no murmurs, no rubs ABDOMEN: Soft, nontender. No hepatosplenomegaly, normal bowel sounds, no guarding or rigidity. EXTREMITIES: No clubbing, no edema, no cyanosis, 2+ pulses and upper and lower extremities. MUSCULOSKELETAL: Muscle strength and tone normal. SPINE: No scoliosis or deformity SKIN: No rashes CENTRAL NERVOUS SYSTEM: Alert and oriented -3. No focal deficits, tone is normal in all 4 extremities. PSYCHIATRIC: Alert and oriented -3. Appropriate affect. Intact judgment and insight. Results - Laboratory Findings CBC and BMP: 03/07/19 09:37 03/07/19 09:37 PT/INR, D-dimer PT 11.2 sec (9.0-12.0) 03/07/19 09:37 INR 1.1 (<1.2) 03/07/19 09:37 Abnormal lab findings: Abnormal Labs 03/07/19 03/07/19 09:37 09:37 RDW 17.1 H Plt Count 84 L Lymphocytes # (Manual) 0.43 L Creatinine 0.65 L Glucose 134 H Total Bilirubin 1.4 H Total Protein 5.7 L Albumin 3.1 L - Diagnostic Findings Chest x-ray: report reviewed, image reviewed Additional studies: EKG reviewed, ultrasound of the chest reviewed Assessment and Plan Plan: Assessment: #1. Acute dyspnea with acute worsening bilateral pleural effusions, ultrasound of the chest showed 11.2 cm pocket on the left, with lung tissue visualized of 5.5 cm, and a right pleural effusion pocket of 3.3 cm, proBNP was within normal limits, but chest x-ray showed central vascularity suggesting fluid overload state #2. Recurrent metastatic esophageal carcinoma stage IV, status post chemo radiotherapy, last chemotherapy treatment was 2 weeks ago, most recent CT of the chest/abdomen and pelvis showed progression of the disease with multiple areas of nodularity involving paratracheal lymph node in the right lung, a large mass involving the pancreatic tail and body, creasing retroperitoneal lymph nodes and indeterminant lesion within the mid liver #3. Abdominal ascites #4. history of prostate cancer status post radiation #5. Hiatal hernia #6. GERD/reflux #7. Thrombocytopenia likely related to chemoraradiotherapy Plan: Continue IV diuretics, persistent with thoracentesis, and the pleural fluid will be sent for analysis, cytology and cultures. This was discussed with the patient and patient is agreeable to proceed I performed a history & physical examination of the patient and discussed their management with my nurse practitioner, Brandee Strange. I reviewed the nurse practitioner's note and agree with the documented findings and plan of care. Lung sounds are positive for diminished breath sounds. The findings and the impression was discussed with the patient. I attest to the documentation by the nurse practitioner. Time with Patient: Greater than 30
--- NOTE | 2019-03-07 14:50 | XR ---
EXAMINATION TYPE: XR chest 1V portable DATE OF EXAM: 03/07/2019 COMPARISON: Prior chest x-ray 03/07/2019 HISTORY: Status post thoracentesis TECHNIQUE: Single frontal view of the chest is obtained. FINDINGS: The right-sided Port-A-Cath is again noted with the distal tip the catheter overlying the region of the cavoatrial junction. There is some improvement in aeration at the left lung base. No ev ident pneumothorax. Right-sided of the chest shows a stable appearance. Heart is obscured. IMPRESSION: No evident complication status post left thoracentesis.
[2019-03-07] MEDS ORDERED: MORPHINE SULFATE 2 MG/ML SYRINGE IVP PRN (14:55)
[2019-03-07] MEDS: ONDANSETRON 4 MG TAB PO PRN ×2 (14:58→21:19)
--- NOTE | 2019-03-07 14:58 | PCN ---
PROCEDURE NOTE LEFT-SIDED THORACENTESIS: PREOPERATIVE DIAGNOSIS: Left pleural effusion. POSTOPERATIVE DIAGNOSIS: Left pleural effusion. ANESTHESIA USED: 2 mL of 1% lidocaine. PROCEDURE DESCRIPTION: The patient was placed in a sitting upright position, the area below the left scapula was prepared in a sterile fashion and drapes were applied. The fluid was earlier localized by ultrasound, and the pocket of fluid on the left side was marked by ultrasound. This correlated to the 8th intercostal space and tip of the scapula. The area was locally anesthetized, and a 26-gauge needle was inserted at the same site until the fluid was localized with the needle. Then a small tiny incision was made, and a standard thoracentesis catheter and needle were used and advanced through the incision site, and advanced into the pleural space until the fluid was obtained. Then, the catheter was advanced over the needle into the pleural space, and the needle was pulled out of the pleural space. Freely flowing fluid was removed, roughly 1450 mL of serosanguineous fluid was obtained from the left pleural space. The fluid was sent for different diagnostic studies. No evidence of any immediate complications. Chest x-ray was ordered postoperatively. MMODL / IJN: [id number] /
[2019-03-07] MEDS: ACETAMINOPHEN TAB 325 MG TAB PO PRN (16:47)
[2019-03-07] MEDS: FAMOTIDINE 20 MG/2 ML VIAL IV SCH (20:30)
[2019-03-07] MEDS: HEPARIN SODIUM,PORCINE 5,000 UNIT/ML 1 ML VIAL SQ SCH (20:31)
[2019-03-07] MEDS: METOPROLOL TARTRATE 25 MG TAB PO SCH (20:31)
[2019-03-07] MEDS: GABAPENTIN 100 MG CAP PO SCH (20:31)
[2019-03-07] MEDS: PROCHLORPERAZINE 10 MG TAB PO PRN (22:44)
[2019-03-08 08:28] LABS: African American GFR (CKD) >90 (>60 ml/min/1.73 sqM); Anion Gap 6 mmol/L; Blood Urea Nitrogen 21 mg/dL (9-20); Calcium 8.6 mg/dL (8.4-10.2); Carbon Dioxide 33 mmol/L (22-30); Chloride 100 mmol/L (98-107); Glucose 143 mg/dL (74-99); Non-African American GFR(CKD) 88 (>60 ml/min/1.73 sqM); Potassium 4.5 mmol/L (3.5-5.1); Sodium 139 mmol/L (137-145)
[2019-03-08 08:33] LABS: Anisocytosis Slight; HCT 42.4 % (39.0-53.0); HGB 13.3 gm/dL (13.0-17.5); Hypochromasia Moderate; MCH 28.9 pg (25.0-35.0); MCHC 31.2 g/dL (31.0-37.0); MCV 92.6 fL (80.0-100.0); Mean Platelet Volume 9.8; Platelet Count 122 k/uL (150-450); Poikilocytosis Moderate; RBC 4.59 m/uL (4.30-5.90); RDW 17.2 % (11.5-15.5)
[2019-03-08] MEDS: METOPROLOL TARTRATE 25 MG TAB PO SCH ×2 (08:41→21:33)
[2019-03-08] MEDS: GABAPENTIN 100 MG CAP PO SCH ×2 (08:42→21:33)
[2019-03-08] MEDS: FAMOTIDINE 20 MG/2 ML VIAL IV SCH (08:42)
[2019-03-08] MEDS: HEPARIN SODIUM,PORCINE 5,000 UNIT/ML 1 ML VIAL SQ SCH ×2 (08:42→21:33)
[2019-03-08] MEDS: PANTOPRAZOLE 40 MG TABLET PO SCH (08:42)
[2019-03-08] MEDS: FUROSEMIDE 10 MG/ML 4 ML VIAL IV SCH ×2 (08:42→21:32)
[2019-03-08] MEDS: TAMSULOSIN 0.4 MG CAP.ER.24H PO SCH (08:42)
[2019-03-08] MEDS ORDERED: metFORMIN 500 MG TAB PO SCH (09:00)
--- NOTE | 2019-03-08 10:17 | P.CONS ---
History of Present Illness - Reason for Consult Consult date: 03/08/19 esophageal malignancy Requesting physician: Sidney Fields - Chief Complaint KAY - History of Present Illness Pt was admitted for progressive difficulty in breathing, progressive x 1 week, unable to complete a sentence without having to catch his breath, he had a left thoracentesis yesterday with improvement in his KAY, pleural fluid cytology pending. notes that he is beginning to struggle with breathing and is having trouble completing a sentence again. Patient is now O2 dependent, weak, he is denying any pain at this time. No fevers, chills, nausea, vomiting, palpitations, chest pain, abdominal pain or cramping, acute changes in bowel or bladder habits. Patient was seen in the last week or so by Dr. Swenson and was preparing to begin a new chemotherapy for progressive disease. [place] that there was external compression on blood vessels that was causing him episodes of dizziness and near-syncope. This presentation is a significant change from the patient's presentation at that time. Malignancy history: Longstanding Hx of acid reflux and heartburn, which he self medicated with OTC preparations as needed. 05/07, he started experiencing pain just below the rib cage bilaterally, after eating. CT 07/20/14 revealing thickening of the esophagus. EGD 07/25/14, revealed Boswell's esophagus distal to the 29 cm pilar, with a thickened, polypoid, circumferential area around 35 cm, biopsy positive for adenocarcinoma. Staging PET 08/05/14, revealed uptake in multiple nodes in the supraclavicular, bilateral hilar, mediastinal and subcarinal areas, and in the distal esophagus. The case was d/w Dr Chamberlain. The lymph node involvement pattern was felt to be unusual for his cancer and he was referred to Dr. Salgado at [facility] for a mediastinoscopy. This was done on 08/23/14, and actually revealed sarcoidosis. An EUS on 09/11/14 revealed T3 disease, no suspicious lower esophageal nodes. He started chemo/XRT with carbo/Taxol on 10/02/14, completing those in 11/07. He was referred back to Dr. Salgado, and had esophagectomy with pull through on 12/19/14. Final pathology revealed only a small microscopic focus of residual ca in the esophagus, with 0/24 nodes involved. RML wedge showed granulomatous inflammation. He has had other complications, an anastomotic leak, stent placement, splenic infarct, splenomegaly. CT 07/25/15 revealed no evidence off recurrence. EGD and colonos copy 10/09 were negative. He had developed some hoarseness in mid 2017 and had a nodule removed by ENT from his vocal cord in 09/09. He initially improved but, this worsened. CT CAP in 10/10 showed increased rt paratracheal node at 1.8 x 4.6 cm, as well as abnormal appearance of the region of the tail and body of the pancreas, with encasement of the splenic vessels. Biopsy of the rt supraclavicular node on 11/09/17, positive for adenoca, c/w UGI /pancreatobiliary primary. Her-2 negative, PET showed uptake in the wendy mass and a slightly inferior superior mediastinal mass, no other areas of uptake, including in the pancreas, were noted. He was treated as a limited recurrence of his esophageal ca, started FOLFOX on 11/30/17 and completed on 03/05/18. He had good response by PET to FOLFOX, and was felt to be a good candidate to consolidative RT. Started 03/15/18, and completed it on 04/21/18. Resumed chemo on 05/06/18, and is s/p 6 cycles for 12 total, completing those in 08/11. He was then placed on the 5-FU infusion every 2 weeks for maintenance. EGD and EUS on 09/27/18, biopsies from the stomach and esophagus showed candidiasis, negative for malignancy. The pancreas mass could not be biopsied via EUS as the the splenic vein was encased. 5 FU was placed on hold in early 10/11 due to progressive cytopenias. CT 11/13/18 showed a new left pleural effusion and rt paratracheal node 2.7 cm, larger vs before. He had a thoracentesis in early 12/11, with cytology negative. He resumed 5 FU on 12/21/18. CT 02/24/19 showed further increase in size of the right paratracheal mass now with encasement of the right subclavian. There appeared to be further progression with new adenopathy in the retroperitoneum, 1.3 cm left adrenal nodule, an 8mm hypodensity in the mid liver, there is also new onset ascites. He had increased orthopnea with persistent cough, not relieved by inhlaers or abx. This is partially improved on a prednisone taper, worse on exertion or talking, swallowing maintained as long as he chews thoroughly and takes his time. 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 Hx "rapid heart rate", hx esophageal cancer 2014 with radiation and chemo, hx prostate cancer prior to esophageal ca, had radiation. Hx hiatal hernia, hx anemia. 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 Hx Pnemonia few yrs ago. Ringing in ears. History of Any Multi-Drug Resistant Organisms: None Reported Past Surgical History: Appendectomy, Hernia Repair, Orthopedic Surgery, Prostate Surgery Additional Past Surgical History / Comment(s): Surgery for esophageal cancer, right shoulder surgery. Past Anesthesia/Blood Transfusion Reactions: Previous Problems w/ Anesthesia, Motion Sickness, Postoperative Nausea & Vomiting (PONV) Additional Past Anesthesia/Blood Transfusion Reaction / Comm: Hard time waking up. Past Psychological History: No Psychological Hx Reported Smoking Status: Never smoker Past Alcohol Use History: None Reported Past Drug Use History: None Reported - Past Family History Mother Family Medical History: Cancer Brother(s) Family Medical History: Cancer Additional Family Medical History / Comment(s): Prostate cancer. Medications and Allergies Home Medications Medication Instructions Recorded Confirmed Type Imipramine HCl [Tofranil] 50 mg PO BID 07/21/14 03/07/19 History Lansoprazole 30 mg PO DAILY 07/25/16 03/07/19 History Metoprolol Tartrate 25 mg PO BID 07/25/16 03/07/19 History Ondansetron HCl [Zofran] 4 mg PO Q6H PRN 12/15/17 03/07/19 History Prochlorperazine [Compazine] 10 mg PO Q6H PRN 12/15/17 03/07/19 History Acetaminophen [Tylenol] 650 mg PO Q6H PRN 03/07/19 03/07/19 History Gabapentin [Neurontin] 200 mg PO BID 03/07/19 03/07/19 History metFORMIN HCL [Glucophage] 500 mg PO DAILY 03/07/19 03/07/19 History Famotidine [Pepcid] 20 mg PO DAILY #15 tablet 03/08/19 Rx Furosemide [Lasix] 40 mg PO DAILY #21 tablet 03/08/19 Rx Tamsulosin [Flomax] 0.4 mg PO PC-BRKFST #30 cap.er.24h 03/08/19 Rx Allergies Allergy/AdvReac Type Severity Reaction Status Date / Time No Known Allergies Allergy Verified 03/07/19 11:32 Physical Exam Vitals: Vital Signs Temp Pulse Pulse Pulse Resp BP BP 03/08/19 05:44 97.5 F L 111 H 18 115/71 03/07/19 21:04 97.6 F 130 H 16 122/66 03/07/19 17:30 19 03/07/19 16:30 97.5 F L 126 H 20 124/74 03/07/19 15:19 125 H 18 118/96 03/07/19 14:37 125 H 18 118/79 03/07/19 14:23 120 H 03/07/19 14:02 125 H 20 127/81 03/07/19 11:47 120 H 18 125/82 03/07/19 10:22 121 H 03/07/19 10:15 117 H Pulse Ox 03/08/19 05:44 94 L 03/07/19 21:04 97 03/07/19 17:30 03/07/19 16:30 96 03/07/19 15:19 97 03/07/19 14:37 97 03/07/19 14:23 03/07/19 14:02 95 03/07/19 11:47 96 03/07/19 10:22 03/07/19 10:15 Intake and Output 03/07/19 03/08/19 03/08/19 22:59 06:59 14:59 Intake Total 120 0 Output Total 800 Balance 120 -800 Intake: Oral 120 0 Output: Urine 800 Other: Voiding Method Toilet Toilet # Voids 700 - Constitutional General appearance: cooperative, mild distress, thin - EENT Eyes: anicteric sclerae, EOMI ENT: hearing grossly normal, normal oropharynx - Neck Neck: no lymphadenopathy - Respiratory Respiratory: bilateral: diminished - Cardiovascular Heart sounds: normal: S1, S2 Abnormal Heart Sounds: no systolic murmur, no diastolic murmur, no rub, no S3 Gallop, no S4 Gallop, no click, no other leg Peripheral Edema: bilateral: None - Gastrointestinal General gastrointestinal: no absent bowel sounds, no decreased bowel sounds, no distended, no hepatomegaly, no hyperactive bowel sounds, normal bowel sounds, no organomegaly, no rigid, no scaphoid, soft, no splenomegaly, no tenderness, no umbilical hernia, no ventral hernia - Neurologic Neurologic: CNII-XII intact - Musculoskeletal Musculoskeletal: generalized weakness, strength equal bilaterally - Psychiatric Psychiatric: A&O x's 3, appropriate affect, intact judgment & insight Results CBC & Chem 7: 03/08/19 07:37 03/08/19 07:37 Labs: Abnormal Lab Results - Last 24 Hours (Table) 03/07/19 03/07/19 03/08/19 Range/Units 09:37 13:40 07:37 RDW 17.1 H 17.2 H (11.5-15.5) % Plt Count 84 L 122 L (150-450) k/uL Lymphocytes # (Manual) 0.43 L (1.0-4.8) k/uL Carbon Dioxide (22-30) mmol/L BUN (9-20) mg/dL Glucose (74-99) mg/dL Urine Protein 1+ H (Negative) Urine Ketones Trace H (Negative) Ur Leukocyte Esterase Trace H (Negative) Urine RBC 9 H (0-5) /hpf Urine WBC 12 H (0-5) /hpf Calcium Oxalate Crystal Occasional H (None) /hpf Hyaline Casts 9 H (0-2) /lpf Urine Mucus Many H (None) /hpf 03/08/19 Range/Units 07:37 RDW (11.5-15.5) % Plt Count (150-450) k/uL Lymphocytes # (Manual) (1.0-4.8) k/uL Carbon Dioxide 33 H (22-30) mmol/L BUN 21 H (9-20) mg/dL Glucose 143 H (74-99) mg/dL Urine Protein (Negative) Urine Ketones (Negative) Ur Leukocyte Esterase (Negative) Urine RBC (0-5) /hpf Urine WBC (0-5) /hpf Calcium Oxalate Crystal (None) /hpf Hyaline Casts (0-2) /lpf Urine Mucus (None) /hpf Chest x-ray: report reviewed Assessment and Plan (1) Pleural effusion Narrative/Plan: Pt did feel better post thoracentesis but, noted increasing SOB with speaking already today. Pending evaluation for thoracentesis on the right. Cont aggressive management as it does provide palliation for pt symptoms Current Visit: Yes Status: Acute Priority: High Code(s): J90 - PLEURAL EFFUSION, NOT ELSEWHERE CLASSIFIED SNOMED Code(s): 54305034 (2) Esophageal adenocarcinoma Narrative/Plan: Pt had recent progression of disease. He was evaluated about 1-2 weeks ago and was cleared to begin new chemo regimen. Pt presenting symptoms are all acute since that evaluation. Dr. Swenson had a long discussion with pt and . It was explained that in his current condition pt is not a candidate for chemotherapy. If treatment of pt symptoms allow him to recuperate and get any strength back he could become a candidate for treatment. Treatment will afford pt a 1 in 3 chance that it will have any meaningful impact on his disease. meaningful response to treatment translates to about 3-4 months. Hospice was discussed as an absolutely reasonable choice. If pt symptoms/PS do not improve/show signs of improvement in the next 2-3 days then unfortunately the only option will be hospice. Pt and are going to talk. Cont aggressive treatment of symptoms for now. Will update medical record with pt decision in the next 24-48 hours. Current Visit: Yes Status: Chronic Priority: High Code(s): C15.9 - MALIGNANT NEOPLASM OF ESOPHAGUS, UNSPECIFIED SNOMED Code(s): 463461127 Plan: Doctor attests: I performed a history and physical examination of this patient, developed impression and plan of care, discussed with dictator. I agree with dictators note, documented as a scribe.
[2019-03-08 10:40] LABS: Band Neutrophils % 1 %; Eosinophils # (M) 0.24 k/uL (0-0.7); Lymphocytes # (M) 0.32 k/uL (1.0-4.8); Monocytes # (M) 1.28 k/uL (0-1.0); Neutrophils % (M) 76 %; Nucleated Red Blood Cells 0 /100 WBC (0-0); Total Cells Counted 100
--- NOTE | 2019-03-08 11:43 | P.PN ---
Subjective Progress Note Date: 03/08/19 Principal diagnosis: Dyspnea secondary to bilateral pleural effusions left greater than right 74-year-old male patient with history of recurrentmetastatic stage IV esophageal cancer, on chemoradiation, last chemotherapy 2 weeks ago and evidence of disease progression on last evaluation who presented to the emergency department on 03/07/2019 with complaints of progressive dyspnea. Other medical history includes prostate cancer status post radiation, hiatal hernia, GERD, and previous episodes of pneumonia. Most recent computed tomography scan of the chest abdomen and pelvis on February 24, 2019 showed multiple areas of nodularity including superior right peritracheal lymph node with slight enlargement, which now partially encases and mildly narrows the proximal right subclavian artery, large mass involving the pancreatic tail, increasing to a peritoneal lymph nodes, and determine and hypodense lesion within the mid liver. In addition there was a persistent small left pleural effusion with new small right pleural effusion, new mild upper abdominal ascites and moderate to large pelvic ascites. chest x-ray was completed showing worsening now moderate-sized bilateral pleural effusions with moderate central vascular congestion suggesting fluid overload state. EGD showed sinus tachycardia with a rate of 1:15 BPM, ultrasound of the chest was completed showing right pleural effusion pocket of 3.3 cm and left pleural effusion pocket of 11.2 cm with the lung tissue visualized at 5.5 cm. hPatient was started on IV Lasix at 40 mg every 12 hours IV push, were asked to see the patient in evaluation for bilateral pleural effusions. Labs were reviewed showing a white blood cell count of 7.1, hemoglobin of 14.2, platelet count of 84, coagulation profile within normal limits, electrolytes were within normal limits, BUN is 18 creatinine is 0.65, LFTs were within normal limits, proBNP was 144. The patient is seen today 03/08/2019 in follow-up on the regular medical floor. He is currently sitting up at the bedside. Awake and alert in no acute distress. He is breathing a bit easier today compared to yesterday. He did undergo a left-sided thoracentesis with 1.50 L of fluid removed. Follow-up chest x-ray showed improvement in aeration of the left lung base. No complications. Fluid analysis and cytology are pending. White count 8.0. Hemoglobin 13.3. Platelets 122,000. Sodium 139. Potassium 4.5. Creatinine 0.83. He is continued on IV diuretics Lasix 40 mg every 12 hours, antibiotics in the form of ceftriaxone. He is currently maintaining O2 saturation in the mid 90s on 2 L/m per nasal cannula. He is afebrile. Objective - Vital Signs Vital signs: Vital Signs Temp 97.5 F L 03/08/19 05:44 Pulse 111 H 03/08/19 05:44 Resp 18 03/08/19 07:20 BP 115/71 03/08/19 05:44 Pulse Ox 94 L 03/08/19 05:44 Intake & Output 03/07/19 03/08/19 03/08/19 18:59 06:59 18:59 Intake Total 120 Output Total 1375 800 Balance -1375 -680 Weight 81 kg Intake: Oral 120 Output: Urine 1375 800 Uretheral ([place]) 0 Other: Voiding Method Toilet Toilet Toilet # Voids 700 - Exam GENERAL EXAM: Alert, very pleasant, 74-year-old male patient, on 2 L of oxygen with a pulse ox of 94%, comfortable in no apparent distress. HEAD: Normocephalic/atraumatic. EYES: Normal reaction of pupils, equal size. Conjunctiva pink, sclera white. NOSE: Clear with pink turbinates. THROAT: No erythema or exudates. NECK: No masses, no JVD, no thyroid enlargement, no adenopathy. CHEST: No chest wall deformity. Symmetrical expansion. LUNGS: Equal air entry with diminished breath sounds at the bases CVS: Regular rate and rhythm, normal S1 and S2, no gallops, no murmurs, no rubs ABDOMEN: Soft, nontender. No hepatosplenomegaly, normal bowel sounds, no guarding or rigidity. EXTREMITIES: No clubbing, no edema, no cyanosis, 2+ pulses and upper and lower extremities. MUSCULOSKELETAL: Muscle strength and tone normal. SPINE: No scoliosis or deformity SKIN: No rashes CENTRAL NERVOUS SYSTEM: No focal deficits, tone is normal in all 4 extremities. PSYCHIATRIC: Alert and oriented -3. Appropriate affect. Intact judgment and insight. - Labs CBC & Chem 7: 03/08/19 07:37 03/08/19 07:37 Labs: Abnormal Lab Results - Last 24 Hours (Table) 03/07/19 03/08/19 03/08/19 Range/Units 13:40 07:37 07:37 RDW 17.2 H (11.5-15.5) % Plt Count 122 L (150-450) k/uL Lymphocytes # (Manual) 0.32 L (1.0-4.8) k/uL Monocytes # (Manual) 1.28 H (0-1.0) k/uL Carbon Dioxide 33 H (22-30) mmol/L BUN 21 H (9-20) mg/dL Glucose 143 H (74-99) mg/dL Urine Protein 1+ H (Negative) Urine Ketones Trace H (Negative) Ur Leukocyte Esterase Trace H (Negative) Urine RBC 9 H (0-5) /hpf Urine WBC 12 H (0-5) /hpf Calcium Oxalate Crystal Occasional H (None) /hpf Hyaline Casts 9 H (0-2) /lpf Urine Mucus Many H (None) /hpf Assessment and Plan Assessment: #1. Acute dyspnea with acute worsening bilateral pleural effusions, ultrasound of the chest showed 11.2 cm pocket on the left, with lung tissue visualized of 5.5 cm, and a right pleural effusion pocket of 3.3 cm, proBNP was within normal limits, but chest x-ray showed central vascularity suggesting fluid overload state. Status post left-sided thoracentesis on 03/07/2019 with 1.5 L of serosanguineous fluid removed. #2. Recurrent metastatic esophageal carcinoma stage IV, status post chemo radiotherapy, last chemotherapy treatment was 2 weeks ago, most recent CT of the chest/abdomen and pelvis showed progression of the disease with multiple areas of nodularity involving paratracheal lymph node in the right lung, a large mass involving the pancreatic tail and body, creasing retroperitoneal lymph nodes and indeterminant lesion within the mid liver #3. Abdominal ascites #4. history of prostate cancer status post radiation #5. Hiatal hernia #6. GERD/reflux #7. Thrombocytopenia likely related to chemoraradiotherapy Plan: The patient was seen and evaluated by Dr. Ca. He did remove 1.5 L of serosanguineous fluid from the left chest yesterday. Fluid analysis and cytology are pending. Fluid not significant on the right. No plans for further thoracentesis. If he should have recurrent left-sided pleural effusions he would most likely benefit from a Pleurx catheter placement. Follow-up chest x- ray in the a.m. Increase his activity as tolerated. We'll continue to follow and make further recommendations based on his clinical status. I, the cosigning physician, performed a history & physical examination of the patient. Lungs sounds are diminished in the bilateral posterior bases. Maintaining good O2 saturations in the 90s on 2 L/m per nasal cannula. I discussed the assessment and plan of care with my nurse practitioner, Bethany Lin. I attest to the above note as dictated by her.
--- NOTE | 2019-03-08 12:01 | ECHOF ---
Referral Reason:Rule out heart disease MEASUREMENTS -------- HEIGHT: 193.0 cm WEIGHT: 77.1 kg BP: RVIDd: 3.2 cm (< 3.3) IVSd: 1.0 cm (0.6 - 1.1) LVIDd: 3.8 cm (3.9 - 5.3) LVPWd: 1.1 cm (0.6 - 1.1) IVSs: 1.6 cm LVIDs: 2.2 cm LVPWs: 1.7 cm LA Diam: 2.6 cm (2.7 - 3.8) Ao Diam: 3.6 cm (2.0 - 3.7) AV Cusp: 1.9 cm (1.5 - 2.6) MV EXCURSION: 29.458 mm (> 18.000) MV EF SLOPE: 362 mm/s (70 - 150) EPSS: 0.7 cm MV E Sanchez: 0.99 m/s MV DecT: 126 ms MV A Sanchez: 1.25 m/s MV E/A Ratio: 0.79 RAP: 5.00 mmHg RVSP: 32.75 mmHg TAPSE: 19.54 mm FINDINGS -------- Resting tachycardia (HR>100bpm). This was a technically adequate study. The left ventricular size is normal. There is borderline concentric left ventricular hypertrophy. Overall left ventricular systolic function is normal with, an EF between 60 - 65 %. The right ventricle is normal in size. The left atrial size is normal. The right atrium is normal in size. Interatrial and interventricular septum intact. There is mild aortic valve sclerosis. The mitral valve leaflets are mildly thickened. Mild mitral regurgitation is present. Mild tricuspid regurgitation present. Right ventricular systolic pressure is normal at < 35 mmHg. There is no pulmonic regurgitation present. The aortic root size is normal. Normal inferior vena cava with normal inspiratory collapse consistent with estimated right atrial pre ssure of 5 mmHg. There is no pericardial effusion. CONCLUSIONS -------- 1. Resting tachycardia (HR>100bpm). 2. This was a technically adequate study. 3. The left ventricular size is normal. 4. There is borderline concentric left ventricular hypertrophy. 5. Overall left ventricular systolic function is normal with, an EF between 60 - 65 %. 6. The right ventricle is normal in size. 7. The left atrial size is normal. 8. The right atrium is normal in size. 9. Interatrial and interventricular septum intact. 10. There is mild aortic valve sclerosis. 11. The mitral valve leaflets are mildly thickened. 12. Mild tricuspid regurgitation present. 13. Right ventricular systolic pressure is normal at < 35 mmHg. 14. There is no pulmonic regurgitation present. 15. The aortic root size is normal. 16. Normal inferior vena cava with normal inspiratory collapse consistent with estimated right atrial pressure of 5 mmHg. 17. There is no pericardial effusion. E [employer] PROJECT MANAGER: Pauline Schmitt RDCS
[2019-03-08 15:03] LABS: Appearance,BF Hazy; Color,BF Orange; Nucleated Cells, Body Fluid 10 /uL; RBC, Body Fluid 6000 /uL
[2019-03-08] MEDS: ACETAMINOPHEN TAB 325 MG TAB PO PRN (16:08)
--- NOTE | 2019-03-08 18:35 | P.PN ---
Subjective This is a pleasant 74 years old male with past medical history of recurrent stage IV esophageal cancer, status post chemoradiotherapy, prostate cancer status post radiation, hiatal hernia, GERD, pneumonia. Presents because of dyspnea of more than one week duration getting worse over the last few days, with no chest pain. Patient has chronic dry cough for the last 4-5 months. Patient also complaining of from lower abdominal pain with little blood in his urine but no change in his bowel movements Patient has recent CAT scan of the abdomen and chest done with his oncologist Dr. Swenson showing multiple areas of mass/nodularity suspicious for metastasis including lung mass about 4 cm, hepatic nodule about 8 mm, pancreatic nodules and left adrenal nodule about 1.3 cm and ascites Patient is tachycardic with heart rate 03/11/2019 he is saturating 97% on room air. Labs unremarkable including CBC, INR, BMP and liver enzymes. Troponin is mildly elevated at 1.4. EKG: Sinus tachycardia at [address]-T changes. Chest x-ray: Worsening bilateral pleural effusion with pulmonary congestion and possible bibasilar infiltrates/atelectasis In the emergency room patient was given a breathing treatment 03/08/2018 s/p left thoracocensatsis and 1450 ml removed pt breathing is better, he is hemodynamically stable , he is tachycardic. as per pt and at bed side pt has chronic tachycardia since 2014. pulmonary input is appreciated , pt still needs monitoring and repeat cxr tomorrow to ensure no pl effusion recurrence Objective - Vital Signs Vital signs: Vital Signs Temp 97.5 F L 03/08/19 12:19 Pulse 121 H 03/08/19 12:19 Resp 18 03/08/19 12:19 BP 103/68 03/08/19 12:19 Pulse Ox 95 03/08/19 12:19 Intake & Output 03/07/19 03/08/19 03/08/19 18:59 06:59 18:59 Intake Total 120 Output Total 1375 800 Balance -1375 -680 Weight 81 kg Intake: Oral 120 Output: Urine 1375 800 Uretheral ([place]) 0 Other: Voiding Method Toilet Toilet Toilet # Voids 700 - Exam -GENERAL: The patient is alert and oriented x3, not in any acute distress. cachectic HEENT: Pupils are round and equally reacting to light. EOMI. No scleral icterus. No conjunctival pallor. Normocephalic, atraumatic. No pharyngeal erythema. No thyromegaly. CARDIOVASCULAR: S1 and S2 present. No murmurs, rubs, or gallops. -PULMONARY: Chest is clear to auscultation, better aeration especially on the left side ABDOMEN: Soft, nontender, nondistended, normoactive bowel sounds. No palpable organomegaly. MUSCULOSKELETAL: No joint swelling or deformity. EXTREMITIES: No cyanosis, clubbing, or pedal edema. NEUROLOGICAL: Gross neurological examination did not reveal any focal deficits. SKIN: No rashes. No petechiae - Labs CBC & Chem 7: 03/08/19 07:37 03/08/19 07:37 Labs: Abnormal Lab Results - Last 24 Hours (Table) 03/08/19 03/08/19 Range/Units 07:37 07:37 RDW 17.2 H (11.5-15.5) % Plt Count 122 L (150-450) k/uL Lymphocytes # (Manual) 0.32 L (1.0-4.8) k/uL Monocytes # (Manual) 1.28 H (0-1.0) k/uL Carbon Dioxide 33 H (22-30) mmol/L BUN 21 H (9-20) mg/dL Glucose 143 H (74-99) mg/dL Microbiology - Last 24 Hours (Table) 03/07/19 14:00 Body Fluid Culture - Preliminary Pleural Fluid Assessment and Plan Assessment: Pulmonary congestion Bilateral pleural effusion, more on the left side , s/p left thoracocensatsis Bilateral basal atelectasis Recurrent stage IV esophageal cancer, with possible multiple metastasis including lung mass about 4 cm, hepatic nodule about 8 mm, pancreatic nodules and left adrenal nodule about 1.3 cm and ascites Status post chemoradiotherapy History of prostate cancer status post radiation Hiatal hernia Gastroesophageal reflux disease History of pneumonia Plan: This is a pleasant 75 years old male who presents with pulmonary congestion pleural effusion. Continue with Lasix. f/u pulmonary services recommendation. check chest xray in the morning Labs and medication were reviewed.. Continue same treatment. Continue with symptomatic treatment. Resume home medication. Monitor lytes and vitals. DVT and GI prophylaxis. Further recommendations of the clinical course of the patient DVT prophylaxis: Subcutaneous heparin GI prophylaxis: Pepcid CODE STATUS: Discussed with the patient and he wants to be full code for now Prognosis is guarded
[2019-03-08] MEDS: FAMOTIDINE 20 MG TAB PO SCH (21:32)
[2019-03-08 22:03] LABS: Glucose, BF Source Pleural Fluid; Glucose, Body Fluid 129 mg/dL; LDH, Body Fluid Source Pleural Fluid; Total Protein, Body Fluid 3100 mg/dL
[2019-03-09] MEDS: PROCHLORPERAZINE 10 MG TAB PO PRN (03:47)
--- NOTE | 2019-03-09 08:15 | P.PN ---
Subjective This is a pleasant 74 years old male with past medical history of recurrent stage IV esophageal cancer, status post chemoradiotherapy, prostate cancer status post radiation, hiatal hernia, GERD, pneumonia. Presents because of dyspnea of more than one week duration getting worse over the last few days, with no chest pain. Patient has chronic dry cough for the last 4-5 months. Patient also complaining of from lower abdominal pain with little blood in his urine but no change in his bowel movements Patient has recent CAT scan of the abdomen and chest done with his oncologist Dr. Swenson showing multiple areas of mass/nodularity suspicious for metastasis including lung mass about 4 cm, hepatic nodule about 8 mm, pancreatic nodules and left adrenal nodule about 1.3 cm and ascites Patient is tachycardic with heart rate 03/11/2019 he is saturating 97% on room air. Labs unremarkable including CBC, INR, BMP and liver enzymes. Troponin is mildly elevated at 1.4. EKG: Sinus tachycardia at [address]-T changes. Chest x-ray: Worsening bilateral pleural effusion with pulmonary congestion and possible bibasilar infiltrates/atelectasis In the emergency room patient was given a breathing treatment 03/08/2019 s/p left thoracocensatsis and 1450 ml removed pt breathing is better, he is hemodynamically stable , he is tachycardic. as per pt and at bed side pt has chronic tachycardia since 2014. pulmonary input is appreciated , pt still needs monitoring and repeat cxr tomorrow to ensure no pl effusion recurrence 03/09/2019 Patient dyspnea is somewhat hoarse today. Repeat chest x-ray is pending. Patient remains on 2 L oxygen and draped in 93%, is chronically tachycardic. Labs from today are pending. Pleural fluid cytology is pending as well. I discussed with patient and today about palliative team evaluation, they agree with palliative/hospice consult which is called. Continue with pain management and add morphine, also Ativan as needed. Patient and are aware of his advanced disease Objective - Vital Signs Vital signs: Vital Signs Temp 97.8 F 03/09/19 05:44 Pulse 111 H 03/09/19 05:44 Resp 20 03/09/19 05:44 BP 111/68 03/09/19 05:44 Pulse Ox 93 L 03/09/19 05:44 Intake & Output 03/08/19 03/09/19 03/09/19 18:59 06:59 18:59 Intake Total 750 Output Total 1400 Balance 750 -1400 Intake: Intake, IV Titration 100 Amount cefTRIAXone 1 gm In 100 Sodium Chloride 0.9% 50 ml @ 100 mls/hr IVPB Q24H [facility] Rx#:[id number] Oral 650 Output: Urine 1400 Other: Voiding Method Toilet Indwelling Catheter # Bowel Movements 1 - Exam -GENERAL: The patient is alert and oriented x3, not in any acute distress. cachectic HEENT: Pupils are round and equally reacting to light. EOMI. No scleral icterus. No conjunctival pallor. Normocephalic, atraumatic. No pharyngeal erythema. No thyromegaly. CARDIOVASCULAR: S1 and S2 present. No murmurs, rubs, or gallops. -PULMONARY: Chest is clear to auscultation, better aeration especially on the left side ABDOMEN: Soft, nontender, nondistended, normoactive bowel sounds. No palpable organomegaly. MUSCULOSKELETAL: No joint swelling or deformity. EXTREMITIES: No cyanosis, clubbing, or pedal edema. NEUROLOGICAL: Gross neurological examination did not reveal any focal deficits. SKIN: No rashes. No petechiae - Labs CBC & Chem 7: 03/08/19 07:37 03/08/19 07:37 Labs: Abnormal Lab Results - Last 24 Hours (Table) 03/08/19 03/08/19 Range/Units 07:37 07:37 RDW 17.2 H (11.5-15.5) % Plt Count 122 L (150-450) k/uL Lymphocytes # (Manual) 0.32 L (1.0-4.8) k/uL Monocytes # (Manual) 1.28 H (0-1.0) k/uL Carbon Dioxide 33 H (22-30) mmol/L BUN 21 H (9-20) mg/dL Glucose 143 H (74-99) mg/dL Microbiology - Last 24 Hours (Table) 03/07/19 14:00 Gram Stain - Preliminary Pleural Fluid Body Fluid Culture - Preliminary Assessment and Plan Assessment: Pulmonary congestion Bilateral pleural effusion, more on the left side , s/p left thoracocensatsis Bilateral basal atelectasis Recurrent stage IV esophageal cancer, with possible multiple metastasis including lung mass about 4 cm, hepatic nodule about 8 mm, pancreatic nodules and left adrenal nodule about 1.3 cm and ascites Status post chemoradiotherapy History of prostate cancer status post radiation Hiatal hernia Gastroesophageal reflux disease History of pneumonia Plan: This is a pleasant 75 years old male who presents with pulmonary congestion pleural effusion. Continue with Lasix. f/u pulmonary services recommendation. check chest xray in the morning . Consult palliative/hospice. Pain management Labs and medication were reviewed.. Continue same treatment. Continue with symptomatic treatment. Resume home medication. Monitor lytes and vitals. DVT and GI prophylaxis. Further recommendations of the clinical course of the patient DVT prophylaxis: Subcutaneous heparin GI prophylaxis: Pepcid CODE STATUS: Discussed with the patient and he wants to be full code for now Prognosis is guarded
[2019-03-09 08:40] LABS: Calcium 8.4 mg/dL (8.4-10.2); Potassium 3.8 mmol/L (3.5-5.1)
[2019-03-09] MEDS: FUROSEMIDE 10 MG/ML 4 ML VIAL IV SCH (08:56)
--- NOTE | 2019-03-09 08:56 | XR ---
EXAMINATION TYPE: XR chest 1V portable DATE OF EXAM: 03/09/2019 COMPARISON: Prior chest x-ray 03/07/2019, CT 03/14/2019 HISTORY: Bilateral pleural effusions TECHNIQUE: Single frontal view of the chest is obtained. FINDINGS: Port-A-Cath is stable. Heart is obscured but likely unchanged. No evident pneumothorax. He midiaphragms are obscured, there is blunting of the costophrenic angles. Interstitium is increased. L ucency centered over the right lower hemithorax is likely related to patient's postop change. There a re overlying cardiac leads. Mass density causes tracheal deviation as noted on prior CT. IMPRESSION: Findings are similar to prior exam. Bilateral pleural effusions, correlate for possible pneumonia. Additional findings above.
[2019-03-09] MEDS: GABAPENTIN 100 MG CAP PO SCH (08:57)
[2019-03-09] MEDS: METOPROLOL TARTRATE 25 MG TAB PO SCH (08:57)
[2019-03-09] MEDS: MORPHINE SULFATE IR 15 MG TABLET PO PRN ×2 (08:58→15:21)
[2019-03-09] MEDS: PANTOPRAZOLE 40 MG TABLET PO SCH (08:58)
[2019-03-09] MEDS: FAMOTIDINE 20 MG TAB PO SCH (08:59)
[2019-03-09] MEDS: HEPARIN SODIUM,PORCINE 5,000 UNIT/ML 1 ML VIAL SQ SCH (09:10)
[2019-03-09] MEDS: TAMSULOSIN 0.4 MG CAP.ER.24H PO SCH (09:10)
[2019-03-09 11:56] VITALS: BP 112/76; PULSE 112; RESP 17; TEMP 98
[2019-03-09] MEDS: ONDANSETRON 4 MG TAB PO PRN (15:41)
--- NOTE | 2019-03-09 18:14 | P.PN ---
Subjective Progress Note Date: 03/09/19 Principal diagnosis: Difficulty swallowing, difficulty breathing secondary to Metastatic esophageal adenocarcinoma In follow-up today patient is sitting up in the bed surrounded by his family. He has moderate to severe orthopnea, he is having dislodging a, his breathing is progressively worsening. He will get severe pain/headache on the right side of the neck/head at times. No other complaints at this time Objective - Vital Signs Vital signs: Vital Signs Temp 98 F 03/09/19 11:55 Pulse 112 H 03/09/19 11:55 Resp 17 03/09/19 11:55 BP 112/76 03/09/19 11:55 Pulse Ox 93 L 03/09/19 11:55 Intake & Output 03/08/19 03/09/19 03/09/19 18:59 06:59 18:59 Intake Total 750 100 Output Total 1400 2 Balance 750 -1400 98 Intake: Intake, IV Titration 100 100 Amount cefTRIAXone 1 gm In 100 100 Sodium Chloride 0.9% 50 ml @ 100 mls/hr IVPB Q24H [facility] Rx#:[id number] Oral 650 Output: Urine 1400 2 Other: Voiding Method Toilet Indwelling Catheter Urinal # Voids 550 # Bowel Movements 1 - Exam Well-developed, thin, frail, respirations are mildly labored, patient is alert and oriented 4, no other distress appreciated - Labs CBC & Chem 7: 03/08/19 07:37 03/09/19 07:28 Labs: Abnormal Lab Results - Last 24 Hours (Table) 03/09/19 Range/Units 07:28 Sodium 136 L (137-145) mmol/L BUN 27 H (9-20) mg/dL Glucose 148 H (74-99) mg/dL Microbiology - Last 24 Hours (Table) 03/07/19 14:00 Gram Stain - Preliminary Pleural Fluid Body Fluid Culture - Preliminary Assessment and Plan (1) Pleural effusion Status: Acute Priority: High Code(s): J90 - PLEURAL EFFUSION, NOT ELSEWHERE CLASSIFIED SNOMED Code(s): 70753472 (2) Esophageal adenocarcinoma Status: Chronic Priority: High Code(s): C15.9 - MALIGNANT NEOPLASM OF ESOPHAGUS, UNSPECIFIED SNOMED Code(s): 098644785 Plan: Patient and family questions were answered, have decided hospice care. Consult has been placed for the same No CODE STATUS was reviewed with them, patient is a no code. Patient is okay from a Heme/Onc standpoint to be discharged once all hospice services are in place and patient has been cleared by Attending Doctor attests: I performed a history and physical examination of this patient, developed impression and plan of care, discussed with dictator. I agree with dictators note, documented as a scribe.
--- NOTE | 2019-03-17 09:44 | CDI ---
Documentation Clarification Form Date: 03/17/19 From: Cari Vazquez CCS Phone: If you have a question about this query, please contact Mell Mix, Guest Services at [phone] between 8am and 5pm. Admit Date: 03/07/19 Discharge Date: 03/17/19 Patient Name: Kyle Bauman Visit Number: [id number] ATTENTION: The Clinical Documentation Specialists (CDI) and [facility] Coding Staff appreciate your assistance in clarifying documentation. Please respond to the clarification below the line at the bottom and electronically sign. The CDI & [facility] Coding staff will review the response and follow-up if needed. Please note: Queries are made part of the Legal Health Record. If you have any questions, please contact the author of this message via ITS. Dear Dr. Nova, The final diagnosis of the pathology report states: Thoracentesis fluid positive for metastatic adenocarcinoma. Documentation states: Pleural effusion bilateral Patient history/risk factors: Metastatic esophageal adenocarcinoma to liver, lung, adrenal, pancreas Clinical Indicators: Pulmonary congestion, oxygen dependent, dyspnea Treatment: Thoracentesis, oxygen, nebulizer In your professional opinion, do you agree with the pathology report specifying pleural effusion as malignant? Yes No Other (please specify) Unable to determine yes MTDD
== END 2019-03-09 17:08 | disposition hospice, home (50) | DRG 375 ==
LOC: EC 09:06 → 5NMEDONC 11:47
PROVIDERS: ADMIT Internal Medicine; ATTEND Internal Medicine
PROC: 0W9B3ZZ Drainage of Left Pleural Cavity, Percutaneous Approach (ICD-10-PCS; principal; 2019-03-07)
DX: C15.9 Malignant neoplasm of esophagus, unspecified (principal); C78.7 Secondary malignant neoplasm of liver and intrahepatic bile duct; R18.8 Other ascites; C78.01 Secondary malignant neoplasm of right lung; C79.72 Secondary malignant neoplasm of left adrenal gland; C78.89 Secondary malignant neoplasm of other digestive organs; J91.0 Malignant pleural effusion; J98.11 Atelectasis; J38.01 Paralysis of vocal cords and larynx, unilateral; D69.59 Other secondary thrombocytopenia; Z66 Do not resuscitate; Z51.5 Encounter for palliative care; K21.9 Gastro-esophageal reflux disease without esophagitis; K44.9 Diaphragmatic hernia without obstruction or gangrene; R00.0 Tachycardia, unspecified; D86.9 Sarcoidosis, unspecified; R31.9 Hematuria, unspecified; T45.1X5A Adverse effect of antineoplastic and immunosuppressive drugs, initial encounter; Z79.899 Other long term (current) drug therapy; Z79.84 Long term (current) use of oral hypoglycemic drugs; Z92.3 Personal history of irradiation; Z92.21 Personal history of antineoplastic chemotherapy; Z85.46 Personal history of malignant neoplasm of prostate; Z98.890 Other specified postprocedural states; Z87.01 Personal history of pneumonia (recurrent); Z90.49 Acquired absence of other specified parts of digestive tract; Z86.2 Personal history of diseases of the blood and blood-forming organs and certain disorders involving the immune mechanism; Z99.81 Dependence on supplemental oxygen; Z80.42 Family history of malignant neoplasm of prostate
CPT/HCPCS: 36415; 51702; 71045; 71046; 76604; 80048; 80053; 81001; 82945; 83615; 83880; 84157; 85025; 85610; 85730; 87070; 87205; 88108; 88305; 88341; 88342; 89050; 93005; 93306; 94640; 96374; 96375; 96376; 99285